=== PATIENT | male | born 1970 | race African-American/Black ===

== ENCOUNTER 2017-03-29 12:01 | Inpatient (IN) | payer OTHER ==
[~2017-03-29] VITALS: Ht 185.4 cm; Wt 68.9 kg
[2017-03-29] VITALS (12 sets, daily range): BP systolic 122–134; BP diastolic 66–77; PULSE 78–104; RESP 16; TEMP 99.3–101.7; O2SAT 100
[~2017-03-29 12:01] MED LIST: Z.0.NO CURRENT MEDS
[2017-03-29 12:25] LABS: I-STAT POTASSIUM 3.8 MMOL/L (3.5-4.9)
[2017-03-29 12:27] LABS: AUTOMATED NEUTROPHIL # 2.7 TH/MM3 (1.8-7.7); BASOPHIL # 0.1 TH/MM3 (0-0.2); BASOPHIL % 1.2 % (0.0-2.0); EOSINOPHIL # 0.1 TH/MM3 (0-0.4); EOSINOPHIL % 2.6 % (0.0-4.0); HEMATOCRIT 40.1 % (39.0-51.0); HEMO FLAGS DIFF FINAL; LYMPH % 41.7 % (9.0-44.0); LYMPHOCYTE # 2.3 TH/MM3 (1.0-4.8); MEAN CELL VOLUME 93.5 FL (80.0-100.0); MEAN CORPUSCULAR HEMOGLOBIN 30.9 PG (27.0-34.0); NEUT % 47.5 % (16.0-70.0); PLATELET COUNT 306 TH/MM3 (150-450); RED BLOOD COUNT 4.29 MIL/MM3 (4.50-5.90); RED CELL DISTRIBUTION WIDTH 14.1 % (11.6-17.2); WHITE BLOOD COUNT 5.6 TH/MM3 (4.0-11.0)
[2017-03-29 12:41] LABS: APTT (PATIENT) 18.9 SEC (24.3-30.1); INTERNATIONAL NORMALIZED RATIO 0.9 RATIO; PROTHROMBIN TIME - PATIENT 10.3 SEC (9.8-11.6)
[2017-03-29] MEDS ORDERED: IOHEXOL 350 MG/ML 10 ML VIAL (for RAD DIAG) IVCONTRAST ONE (12:43)
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
--- NOTE | 2017-03-29 12:56 | RADRPT ---
EXAM DATE/TIME: 03/29/2017 12:03 [place] Corrected on: March 30, 2017; [facility] COMPARISON: No previous studies available for comparison. INDICATIONS : Post intubation MEDICAL HISTORY : None. SURGICAL HISTORY : None. ENCOUNTER: Initial ACUITY: 1 day PAIN SCORE: Non-responsive. LOCATION: Chest FINDINGS: An endotracheal tube has been placed and has its tip in good position 3 cm above the valery. There a re acute fractures involving the posterior lateral aspects of the left eighth and ninth ribs. No pne umothorax is noted. The lungs are clear. CONCLUSION: 1. Acute fractures involving posterior lateral aspects of the left eighth and ninth ribs. 2. Endotracheal tube in good position 3 cm above the valery. Fracisco Goodson MD on March 29, 2017 at 12:42 Board Certified Radiologist. This report was verified electronically. Fracisco Goodson MD on March 30, 2017 at 10:21 Board Certified Radiologist. This report was verified electronically.
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
[2017-03-29] MEDS ORDERED: NALOXONE HCL 0.4 MG/ML AMP IV PUSH PRN (13:30)
[2017-03-29] MEDS ORDERED: PROPOFOL 1000 MG/100 ML INJ 100 ML IV PRN (13:30)
[2017-03-29] MEDS ORDERED: Post-op Orders (for Pharmacy) MISC XX ONE (13:30)
[2017-03-29] MEDS ORDERED: SODIUM CHLORIDE 0.9% FLUSH 10 ML FLUSH IV FLUSH PRN (13:30)
[2017-03-29] MEDS ORDERED: ONDANSETRON HCL 4 MG/2 ML VIAL IV PUSH PRN (13:30)
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
[2017-03-29] MEDS ORDERED: fentaNYL DRIP 250 ML IV PRN (13:45)
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
[2017-03-29] MEDS: SODIUM CHLOR 0.9% 1000 ML INJ 1,000 ML IV SCH (14:59)
[2017-03-29 16:06] LABS: BLOOD GAS BASE EXCESS 2.3 mmol/L (-2-2); BLOOD GAS CARBOXYHEMOGLOBIN 0.9 % (0-4); BLOOD GAS HCO3 27 mmol/L (22-26); BLOOD GAS METHEMOGLOBIN 1.1 % (0-2); BLOOD GAS O2 HGB SATURATION 98 % (90-100); BLOOD GAS OXYGEN CONTENT 17.8 Vol % (12.0-20.0); BLOOD GAS PCO2 43 mmHg (38-42); BLOOD GAS PO2 526 mmHg (61-120); BLOOD GAS TOTAL HGB 11.9 G/DL (12.0-16.0); CRITICAL VALUE NO; OXYGEN DEVICE VENTILATOR; TEMP CORR TO 98.6
[2017-03-29 16:07] LABS: DRAW SITE RT RADIAL; FIO2 100 %; NUMBER OF ARTERIAL PUNCTURES 1; STAT NO; ULNAR PULSE PRESENT; VENT SETTINGS PRVC/AC
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
[2017-03-29] MEDS: ACETAMINOPHEN 1000 MG/100 ML VIAL IV PRN (17:36)
[2017-03-29] MEDS: PROPOFOL 1000 MG/100 ML INJ 100 ML IV PRN ×2 (17:45→20:53)
[2017-03-29] MEDS: fentaNYL DRIP 250 ML IV PRN (17:46)
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
[2017-03-29] MEDS: FAMOTIDINE 20 MG/2 ML VIAL IV PUSH SCH (20:53)
[2017-03-29] MEDS: CHLORHEXIDINE 0.12% (ORAL KIT) 15 ML CUP MT SCH (20:55)
[2017-03-29] MEDS: SODIUM CHLORIDE 0.9% FLUSH 10 ML FLUSH IV FLUSH SCH (20:55)
[2017-03-30] VITALS (21 sets, daily range): BP systolic 99–153; BP diastolic 56–86; PULSE 62–92; RESP 16; TEMP 95.7–98.8; O2SAT 99–100
[2017-03-30] MEDS: PROPOFOL 1000 MG/100 ML INJ 100 ML IV PRN ×5 (02:45→18:44)
[2017-03-30] MEDS: SODIUM CHLOR 0.9% 1000 ML INJ 1,000 ML IV SCH ×3 (02:46→22:08)
[2017-03-30] MEDS: fentaNYL DRIP 250 ML IV PRN ×3 (05:00→18:00)
[2017-03-30 05:19] LABS: BASOPHIL % 0.6 % (0.0-2.0); EOSINOPHIL # 0.1 TH/MM3 (0-0.4); EOSINOPHIL % 1.8 % (0.0-4.0); HEMATOCRIT 32.5 % (39.0-51.0); HEMO FLAGS DIFF FINAL; LYMPH % 24.3 % (9.0-44.0); LYMPHOCYTE # 1.7 TH/MM3 (1.0-4.8); MEAN CELL VOLUME 93.8 FL (80.0-100.0); MEAN CORPUSCULAR HEMOGLOBIN 31.2 PG (27.0-34.0); MEAN CORPUSCULAR HGB CONC 33.3 % (32.0-36.0); MONO % 16.4 % (0.0-8.0); NEUT % 56.9 % (16.0-70.0); PLATELET COUNT 260 TH/MM3 (150-450); RED BLOOD COUNT 3.46 MIL/MM3 (4.50-5.90); RED CELL DISTRIBUTION WIDTH 14.3 % (11.6-17.2); WHITE BLOOD COUNT 7.1 TH/MM3 (4.0-11.0)
[2017-03-30 05:40] LABS: BICARBONATE 29.6 MEQ/L (21.0-32.0); POTASSIUM 4.1 MEQ/L (3.5-5.1)
[2017-03-30] MEDS ORDERED: POTASSIUM CHLORIDE 25 MEQ EFFERVESCENT TAB PO PRN (07:00)
[2017-03-30] MEDS ORDERED: POTASSIUM PHOSPHATE MONOBASIC 500 MG TAB PO/TUBE PRN (07:00)
[2017-03-30] MEDS ORDERED: MAGNESIUM SULFATE INJ 2 GM in SODIUM CHLORIDE 0.9% INJ 96 ML IV PRN (07:00)
[2017-03-30] MEDS: METHOCARBAMOL 500 MG TAB PO SCH ×3 (07:00→21:12)
[2017-03-30] MEDS ORDERED: MAGNESIUM SULFATE INJ 4 GM in SODIUM CHLORIDE 0.9% INJ 92 ML IV PRN (07:00)
[2017-03-30] MEDS ORDERED: POTASSIUM PHOSPHATE INJ 30 MMOL in SODIUM CHLOR 0.9% 250 ML INJ 250 ML IV PRN (07:00)
[2017-03-30] MEDS ORDERED: POTASSIUM CHLOR 40 MEQ PREMIX 100 ML IV PRN ×2 (07:00)
[2017-03-30] MEDS ORDERED: POTASSIUM PHOSPHATE MONOBASIC 500 MG TAB PO PRN (07:00)
[2017-03-30] MEDS ORDERED: SODIUM PHOSPHATE INJ 30 MMOL in SODIUM CHLOR 0.9% 250 ML INJ 240 ML IV PRN (07:00)
[2017-03-30] MEDS ORDERED: BISACODYL 10 MG SUPP RECTAL PRN (07:00)
[2017-03-30] MEDS ORDERED: MAGNESIUM OXIDE 400 MG TAB PO PRN (07:00)
[2017-03-30] MEDS ORDERED: POTASSIUM CHLOR 20 MEQ PREMIX 100 ML IV PRN ×2 (07:00)
[2017-03-30] MEDS ORDERED: GENTAMICIN SULFATE 80 MG/2 ML VIAL ONE (07:05)
[2017-03-30] MEDS ORDERED: VANCOMYCIN HCL 1000 MG VIAL ONE (07:05)
[2017-03-30] MEDS ORDERED: ceFAZolin 2 GM PREMIX 50 ML ONE ×2 (07:05→12:37)
[2017-03-30] MEDS ORDERED: SODIUM CHLOR 0.9% 250 ML INJ 250 ML ONE (07:06)
[2017-03-30] MEDS ORDERED: ACETAMINOPHEN 1000 MG/100 ML 100 ML IV ONE (07:09)
[2017-03-30] MEDS: CHLORHEXIDINE 0.12% (ORAL KIT) 15 ML CUP MT SCH ×2 (08:00→20:24)
[2017-03-30] MEDS ORDERED: BACITRACIN TOP OINT 15 GM TUBE ONE (08:03)
[2017-03-30] MEDS: LACTATED RINGER'S 1000 ML INJ 1,000 ML IV SCH ×2 (08:06→20:36)
--- NOTE | 2017-03-30 08:12 | PD.OP ---
cc: Cesar García MD Operative Report Date of Surgery: Mar 30, 2017 Preoperative Diagnosis: Comminuted right proximal tibial plateau fracture and tibial shaft fracture Postoperative Diagnosis: Procedure: Closed reduction right tibia fractures, external fixation right leg, compartment pressure checks right calf Anesthesia: Gen. Surgeon: Cesar García Plate Embosser(s): Duy Sahu PA-C The surgical procedure was assisted by my physician talent assistant. My P.A. presence was necessary throughout this case for the manipulation and positioning of the surgical extremity. My P.A. was assisting me throughout the duration of this procedure. The skill set of a physician talent assistant was medically necessary to complete this procedure. During the surgical case the medical surgical tech was working at the back table and the physician talent assistant was directly assisting me. Operation and Findings: This patient sustained an injury resulting in comminuted fractures of [right tibia plateau and tibial shaft]. Patient was seen and evaluated preoperatively and found to have too much swelling to proceed with open reduction internal fixation. Patient is intubated and sedated intensive care unit. No family was available for consent. I discussed this case with Dr. Noland. This case is deemed medically necessary as well as medically urgent secondary to the moderate to severe swelling of the calf and risk of developing compartment syndrome. Surgical site was marked. Patient was brought to operating room and placed on the OR table. Patient was given IV sedation and GETA. Patient received IV antibiotics and timeout procedure was performed. Operative leg was prepped with alcohol followed by Hibiclens and draped in the usual sterile fashion. Two small incisions were made along the anterior femur and the tibia. Soft tissue was dissected bluntly. Cannulas were placed down to the cortex of bone. Pin sites were predrilled. Synthes TAVERA-coated pins were placed into the femur and tibia. Fluoroscopy was used to confirm appropriate pin placement. An external fixator construct was now created with clamps and bars. Next attention was turned to reduction. Traction was applied. Fracture was manipulated. Good alignment of the fracture was obtained. Fluoroscopy was used to confirm appropriate alignment of fracture. The external fixator was now tightened to hold reduction. Sterile dressings were applied. Patient was awakened and transferred to intensive care in critical condition The soft tissue was reevaluated. Patient did have swelling around the knee and calf. Because patient is intubated and sedated decision was made to proceed with compartment pressure checks. Using the CanaryHop compartment pressure monitoring device, the compartment pressures were measured. The anterior compartment measured 25 mmHg, the lateral compartment measured 21 mmHg, and the posterior compartment measured 18 mmHg. Cesar García MD Mar 30, 2017 08:11
[2017-03-30] MEDS ORDERED: SODIUM CHLORIDE 0.9% FLUSH 5 ML FLUSH IVF PRN (08:15)
[2017-03-30] MEDS ORDERED: Post-op Orders (for Pharmacy) MISC XX ONE (08:15)
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
[2017-03-30] MEDS: SODIUM CHLORIDE 0.9% FLUSH 5 ML FLUSH IVF SCH ×2 (09:00→21:00)
[2017-03-30] MEDS: DOCUSATE SODIUM 50 MG/SENNA 8.6 MG TAB PO SCH ×2 (09:00→20:24)
[2017-03-30] MEDS: LACTULOSE SYRUP 20 GM/30 ML CUP PO SCH (09:00)
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
[2017-03-30] MEDS: FAMOTIDINE 20 MG/2 ML VIAL IV PUSH SCH ×2 (09:26→20:24)
[2017-03-30] MEDS: LIDOCAINE HCL 5% PATCH T-DERMAL SCH (09:27)
[2017-03-30] MEDS: SODIUM CHLORIDE 0.9% FLUSH 10 ML FLUSH IV FLUSH SCH ×2 (09:28→21:00)
--- NOTE | 2017-03-30 10:30 | RADRPT ---
EXAM DATE/TIME: 03/30/2017 09:24 [facility] COMPARISON: CHEST SINGLE AP, March 29, 2017, 12:03. INDICATIONS : Pulmonary contusions. MEDICAL HISTORY : Nonresponsive SURGICAL HISTORY : Nonresponsive ENCOUNTER: Initial ACUITY: 2 days PAIN SCORE: Non-responsive. LOCATION: Bilateral chest FINDINGS: An endotracheal tube has its tip approximately 3 cm above the valery. A nasogastric tube has its tip below diaphragm. The heart and mediastinal structures are normal. The pulmonary vascular pattern i s also normal. The lungs are clear. There are acute non-displaced fractures involving the posterior lateral aspects of the left eighth and ninth ribs. CONCLUSION: 1. Endotracheal tube in good position 3 cm above the valery. 2. Nasogastric tube in good position below the diaphragm. 3. No acute focal pulmonary infiltrate or pulmonary vascular congestion. 4. Stable acute fractures involving posterior lateral aspect of the left eighth and ninth ribs. Fracisco Goodson MD on March 30, 2017 at 10:17 Board Certified Radiologist. This report was verified electronically.
[2017-03-30] MEDS ORDERED: ONDANSETRON HCL 4 MG/2 ML VIAL IV PUSH ONE (12:00)
[2017-03-30] MEDS ORDERED: ROCURONIUM INJ 50 MG/5 ML SYRINGE IV PUSH ONE (12:00)
[2017-03-30] MEDS ORDERED: DEXAMETHASONE SOD PHOS 4 MG/ML VIAL IV ONE (12:00)
[2017-03-30] MEDS ORDERED: GENTAMICIN SULFATE 80 MG/2 ML VIAL IRRIGATION ONE (13:09)
--- NOTE | 2017-03-30 13:31 | RADRPT ---
EXAM DATE/TIME: 03/30/2017 07:56 [facility] COMPARISON: CT TIBIA/FIBULA, W/O CONTRAST, RIGHT, March 29, 2017, 12:37. INDICATIONS : Surgical repair, x-fix. MEDICAL HISTORY : None. SURGICAL HISTORY : None. ENCOUNTER: Initial ACUITY: 1 day PAIN SCORE: Non-responsive. LOCATION: Right knee. FINDINGS: Severely comminuted fracture of the right knee on the plateau extending into the midshaft of the tibi a. CONCLUSION: Tibial fracture fracture as described above, described in detail on CT scan of fibula and tibia 03/29/2017 Kirt Maldonado MD FACR on March 30, 2017 at 13:28 Board Certified Radiologist. This report was verified electronically.
[2017-03-30] MEDS: KETOROLAC TROMETHAMINE 30 MG/ML (IVP) VIAL IVP SCH ×2 (14:34→21:12)
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
[2017-03-31] VITALS (16 sets, daily range): BP systolic 106–147; BP diastolic 57–81; PULSE 70–116; RESP 12–20; TEMP 98.2–99.5; O2SAT 97–100
[2017-03-31] MEDS: PROPOFOL 1000 MG/100 ML INJ 100 ML IV PRN ×2 (03:37→06:34)
--- NOTE | 2017-03-31 04:38 | RADRPT ---
EXAM DATE/TIME: 03/31/2017 03:50 [facility] COMPARISON: CHEST SINGLE AP, March 30, 2017, 9:24. INDICATIONS : Post intubation MEDICAL HISTORY : Unobtainable SURGICAL HISTORY : Unobtainable ENCOUNTER: Subsequent ACUITY: 3 days PAIN SCORE: Non-responsive. LOCATION: Bilateral chest FINDINGS: Single AP view of the chest. Endotracheal tube and nasogastric tube remain in place. The tip of the e ndotracheal tube is 2.5 cm above the valery. Nasogastric tube is coiled in the stomach. Lungs are barrie ar. Cardiomediastinal silhouette within normal limits. Left eighth and ninth rib fractures again seen . No evidence of pleural effusion or pneumothorax. CONCLUSION: Endotracheal tube and nasogastric tube in place. Lungs are clear. Yoan Kelley MD on March 31, 2017 at 4:35 Board Certified Radiologist. This report was verified electronically.
[2017-03-31 06:10] LABS: BICARBONATE 24.5 MEQ/L (21.0-32.0); POTASSIUM 4.3 MEQ/L (3.5-5.1)
[2017-03-31] MEDS: ENOXAPARIN SODIUM 30 MG/0.3 ML SYRINGE SQ SCH ×2 (06:15→18:01)
[2017-03-31] MEDS: KETOROLAC TROMETHAMINE 30 MG/ML (IVP) VIAL IVP SCH ×3 (06:15→20:36)
[2017-03-31] MEDS: METHOCARBAMOL 500 MG TAB PO SCH ×3 (06:15→20:35)
[2017-03-31 06:35] LABS: AUTOMATED NEUTROPHIL # 5.9 TH/MM3 (1.8-7.7); BASOPHIL # 0.1 TH/MM3 (0-0.2); BASOPHIL % 0.9 % (0.0-2.0); EOSINOPHIL # 0.1 TH/MM3 (0-0.4); EOSINOPHIL % 1.5 % (0.0-4.0); HEMATOCRIT 26.5 % (39.0-51.0); HEMO FLAGS DIFF FINAL; LYMPH % 19.7 % (9.0-44.0); LYMPHOCYTE # 1.9 TH/MM3 (1.0-4.8); MEAN CELL VOLUME 92.6 FL (80.0-100.0); MEAN CORPUSCULAR HEMOGLOBIN 31.4 PG (27.0-34.0); MEAN CORPUSCULAR HGB CONC 33.9 % (32.0-36.0); MONO % 15.3 % (0.0-8.0); NEUT % 62.6 % (16.0-70.0); PLATELET COUNT 178 TH/MM3 (150-450); RED BLOOD COUNT 2.86 MIL/MM3 (4.50-5.90); RED CELL DISTRIBUTION WIDTH 14.2 % (11.6-17.2)
[2017-03-31] MEDS: fentaNYL DRIP 250 ML IV PRN (06:35)
[2017-03-31 06:36] LABS: WHITE BLOOD COUNT 9.4 TH/MM3 (4.0-11.0)
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
[2017-03-31] MEDS: CHLORHEXIDINE 0.12% (ORAL KIT) 15 ML CUP MT SCH ×2 (08:00→20:00)
[2017-03-31] MEDS: DOCUSATE SODIUM 50 MG/SENNA 8.6 MG TAB PO SCH ×2 (08:30→21:00)
[2017-03-31] MEDS: LIDOCAINE HCL 5% PATCH T-DERMAL SCH (08:30)
[2017-03-31] MEDS: FAMOTIDINE 20 MG/2 ML VIAL IV PUSH SCH ×2 (08:30→20:36)
[2017-03-31] MEDS: LACTULOSE SYRUP 20 GM/30 ML CUP PO SCH (08:30)
[2017-03-31] MEDS: SODIUM CHLORIDE 0.9% FLUSH 10 ML FLUSH IV FLUSH SCH (08:31)
[2017-03-31] MEDS: SODIUM CHLORIDE 0.9% FLUSH 5 ML FLUSH IVF SCH (08:31)
[2017-03-31] MEDS: LACTATED RINGER'S 1000 ML INJ 1,000 ML IV SCH ×2 (09:06→21:36)
[2017-03-31] MEDS: SODIUM CHLOR 0.9% 1000 ML INJ 1,000 ML IV SCH ×2 (09:45→18:00)
--- NOTE | 2017-03-31 11:03 | PD.ORT.PN ---
Subjective Subjective Remarks Intubated. follows commands Objective Vitals Vital Signs Date Time Temp Pulse Resp B/P (MAP) Pulse Ox O2 Delivery O2 Flow Rate FiO2 03/31/17 10:08 30 03/31/17 10:00 95 03/31/17 08:49 100 30 03/31/17 08:00 99.3 97 12 115/62 (79) 100 03/31/17 08:00 86 03/31/17 08:00 30 03/31/17 06:00 87 03/31/17 05:05 100 30 03/31/17 04:00 70 03/31/17 04:00 99.1 90 16 136/65 (88) 100 03/31/17 04:00 30 03/31/17 02:00 100 30 03/31/17 00:00 30 03/31/17 00:00 70 03/31/17 00:00 98.2 73 16 106/57 (73) 99 03/30/17 22:00 72 03/30/17 20:20 100 30 03/30/17 20:00 91 03/30/17 20:00 30 03/30/17 20:00 98.8 91 16 99/56 (70) 99 03/30/17 18:00 70 03/30/17 16:18 100 30 03/30/17 16:00 95.7 62 16 113/64 (80) 100 03/30/17 16:00 62 03/30/17 16:00 30 03/30/17 15:47 16 03/30/17 14:00 66 03/30/17 13:50 100 30 03/30/17 13:08 100 100 03/30/17 12:00 97.9 66 16 153/86 (108) 100 03/30/17 12:00 66 03/30/17 12:00 30 I/O 03/30/17 03/30/17 03/30/17 03/31/17 03/31/17 03/31/17 07:00 15:00 23:00 07:00 15:00 23:00 Intake Total 1350 ml 850 ml 1350 ml 450 ml 1000 ml Output Total 820 ml 410 ml 875 ml 1000 ml Balance 530 ml 440 ml 475 ml -550 ml 1000 ml Intake IV Total 1350 ml 700 ml 1350 ml 450 ml 1000 ml Other 150 ml Output Urine Total 800 ml 300 ml 450 ml 400 ml Gastric Drainage Total 20 ml 125 ml 50 ml Drainage Total 300 ml 550 ml Estimated Blood Loss 110 ml # Bowel Movements 0 0 Result Diagram: 03/31/1717 03/31/17516 Imaging Last 24 hours Impressions Knee X-Ray 03/30/17 0000 Signed Impressions: Service Date/Time: Thursday, March 30, 2017 07:56 - CONCLUSION: Tibial fracture fracture as described above, described in detail on CT scan of fibula and tibia 03/29/2017 Kirt Maldonado MD FACR Chest X-Ray 03/30/17 0000 Signed Impressions: Service Date/Time: Thursday, March 30, 2017 09:24 - CONCLUSION: 1. Endotracheal tube in good position 3 cm above the valery. 2. Nasogastric tube in good position below the diaphragm. 3. No acute focal pulmonary infiltrate or pulmonary vascular congestion. 4. Stable acute fractures involving posterior lateral aspect of the left eighth and ninth ribs. Fracisco Goodson MD Objective Remarks Right lower extremity: Clean dry dressings intact with wound VAC in place. External fixator in place. Compartments soft. Distally intact distal pulses. moves toes on R foot fairly well. Assessment & Plan Assessment and Plan Right severely comminuted tibia plateau and proximal tibia shaft fractures with external fixation and return back to OR same day for fasciotomies POD 1 Wound VAC will continue to be maintained at 125 mmHg DPC 3-1 Pin care twice a day Elevation and ice We'll plan on surgery next week if swelling has improved (by Dr. Marie) Toradol Lovenox Daniel Quarles MD Mar 31, 2017 11:03
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
[2017-03-31] MEDS ORDERED: MISCELLANEOUS NURSING INFORMATION XX SCH (11:45)
[2017-03-31] MEDS: ACETAMINOPHEN 1000 MG/100 ML VIAL IV PRN (13:56)
[2017-03-31] MEDS ORDERED: ACETAMINOPHEN 325 MG TAB PO PRN (14:00)
[2017-03-31] MEDS: MORPHINE SULFATE 4 MG/ML INJ IV PUSH PRN ×2 (16:29→16:45)
[2017-03-31] MEDS: ACETAMINOPHEN/HYDROcodone 325 MG/5 MG TAB PO PRN (20:36)
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
[2017-03-31] MEDS: HALOPERIDOL LACTATE 5 MG/ML AMP IV SCH ×2 (22:01→23:05)
[2017-03-31] MEDS: DEXMEDETOMIDINE 200 MCG in NS 48 ML IV PRN (23:21)
[2017-04-01] VITALS (18 sets, daily range): BP systolic 113–157; BP diastolic 58–78; PULSE 71–107; RESP 14–24; TEMP 98.7–99.5; O2SAT 95–100
[2017-04-01] MEDS: DEXMEDETOMIDINE 200 MCG in NS 48 ML IV PRN ×2 (01:46→06:13)
[2017-04-01] MEDS: ENOXAPARIN SODIUM 30 MG/0.3 ML SYRINGE SQ SCH (05:18)
[2017-04-01] MEDS: KETOROLAC TROMETHAMINE 30 MG/ML (IVP) VIAL IVP SCH (05:18)
[2017-04-01] MEDS: METHOCARBAMOL 500 MG TAB PO SCH ×3 (05:18→21:36)
[2017-04-01 06:28] LABS: AUTOMATED NEUTROPHIL # 5.1 TH/MM3 (1.8-7.7); BASOPHIL # 0.1 TH/MM3 (0-0.2); BASOPHIL % 0.9 % (0.0-2.0); EOSINOPHIL # 0.1 TH/MM3 (0-0.4); EOSINOPHIL % 1.2 % (0.0-4.0); LYMPH % 13.2 % (9.0-44.0); LYMPHOCYTE # 0.9 TH/MM3 (1.0-4.8); MEAN CELL VOLUME 92.7 FL (80.0-100.0); MEAN CORPUSCULAR HEMOGLOBIN 32.1 PG (27.0-34.0); MEAN CORPUSCULAR HGB CONC 34.6 % (32.0-36.0); MONO % 11.3 % (0.0-8.0); NEUT % 73.4 % (16.0-70.0); PLATELET COUNT 146 TH/MM3 (150-450); RED CELL DISTRIBUTION WIDTH 13.8 % (11.6-17.2)
[2017-04-01 06:31] LABS: HEMO FLAGS DIFF FINAL
[2017-04-01 06:33] LABS: HEMATOCRIT 15.7 % (39.0-51.0)
[2017-04-01 06:42] LABS: BICARBONATE 27.1 MEQ/L (21.0-32.0); POTASSIUM 3.6 MEQ/L (3.5-5.1)
[2017-04-01] MEDS: LACTATED RINGER'S 1000 ML INJ 1,000 ML IV SCH ×2 (07:33→22:08)
[2017-04-01] MEDS: CHLORHEXIDINE 0.12% (ORAL KIT) 15 ML CUP MT SCH ×2 (07:33→19:39)
[2017-04-01] MEDS: LACTULOSE SYRUP 20 GM/30 ML CUP PO SCH (07:46)
[2017-04-01] MEDS: LIDOCAINE HCL 5% PATCH T-DERMAL SCH (08:11)
[2017-04-01] MEDS: FAMOTIDINE 20 MG/2 ML VIAL IV PUSH SCH ×2 (08:11→19:39)
[2017-04-01] MEDS: SODIUM CHLORIDE 0.9% FLUSH 5 ML FLUSH IVF SCH ×2 (08:12→19:39)
[2017-04-01] MEDS: DOCUSATE SODIUM 50 MG/SENNA 8.6 MG TAB PO SCH ×2 (08:13→19:38)
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
[2017-04-01] MEDS: MORPHINE SULFATE 4 MG/ML INJ IV PUSH PRN ×3 (12:13→19:38)
[2017-04-01] MEDS: SODIUM CHLOR 0.9% 1000 ML INJ 1,000 ML IV SCH ×2 (12:25→23:09)
[2017-04-01] MEDS: ACETAMINOPHEN/HYDROcodone 325 MG/5 MG TAB PO PRN ×3 (12:33→22:11)
--- NOTE | 2017-04-01 17:14 | PD.ORT.PN ---
Subjective Subjective Remarks awake (extubated), no complaints about R leg Objective Vitals Vital Signs Date Time Temp Pulse Resp B/P (MAP) Pulse Ox O2 Delivery O2 Flow Rate FiO2 04/01/17 16:00 88 04/01/17 16:00 98.8 84 16 140/76 (97) 100 04/01/17 15:11 98.8 86 15 147/78 100 04/01/17 14:00 86 04/01/17 13:50 98.7 107 20 122/62 96 04/01/17 13:35 98.8 79 14 126/68 100 04/01/17 13:14 98.7 86 22 126/69 100 04/01/17 12:52 98.8 80 14 113/61 100 04/01/17 12:00 98.8 74 14 124/58 (80) 100 04/01/17 12:00 77 04/01/17 10:00 73 04/01/17 08:09 100 21 04/01/17 08:00 99.0 71 16 125/65 (85) 100 04/01/17 08:00 78 04/01/17 06:00 91 04/01/17 04:00 81 04/01/17 04:00 99.0 87 16 128/66 (86) 100 04/01/17 02:00 84 04/01/17 00:00 98.7 100 15 141/77 (98) 100 04/01/17 00:00 85 03/31/17 22:00 80 03/31/17 20:00 100 03/31/17 20:00 99.0 116 20 132/73 (92) 100 03/31/17 18:00 95 I/O 03/31/17 03/31/17 03/31/17 04/01/17 04/01/17 04/01/17 07:00 15:00 23:00 07:00 15:00 23:00 Intake Total 450 ml 1111 ml 1240 ml 296 ml 980 ml 500 ml Output Total 1000 ml 1827 ml 1150 ml Balance -550 ml 1111 ml -587 ml -854 ml 980 ml 500 ml Intake Oral 240 ml 200 ml IV Total 450 ml 1111 ml 1000 ml 96 ml Packed Cells 800 ml 400 ml Blood Product IV Normal Saline Flush 180 ml 100 ml Output Urine Total 400 ml 1177 ml 550 ml Gastric Drainage Total 50 ml Drainage Total 550 ml 650 ml 600 ml # Bowel Movements 0 0 0 Result Diagram: 04/01/17 0550 04/01/17 0550 Imaging Last 24 hours Impressions Knee X-Ray 03/30/17 0000 Signed Impressions: Service Date/Time: Thursday, March 30, 2017 07:56 - CONCLUSION: Tibial fracture fracture as described above, described in detail on CT scan of fibula and tibia 03/29/2017 Kirt Maldonado MD FACR Chest X-Ray 03/30/17 0000 Signed Impressions: Service Date/Time: Thursday, March 30, 2017 09:24 - CONCLUSION: 1. Endotracheal tube in good position 3 cm above the valery. 2. Nasogastric tube in good position below the diaphragm. 3. No acute focal pulmonary infiltrate or pulmonary vascular congestion. 4. Stable acute fractures involving posterior lateral aspect of the left eighth and ninth ribs. Fracisco Goodson MD Objective Remarks Right lower extremity: Clean dry dressings intact with wound VAC in place. External fixator in place. Compartments soft. Distally intact distal pulses. moves toes on R foot well. no pain with passive stretch. The fluid coming from VAC is typical serosang (no jaquan dark red blood to indicate direct vessel bleeding) Assessment & Plan Assessment and Plan Right severely comminuted tibia plateau and proximal tibia shaft fractures with external fixation and return back to OR same day for fasciotomies POD 2 Wound VAC will continue to be maintained at 125 mmHg DPC 3-1 Pin care twice a day Elevation and ice We'll plan on surgery next week if swelling has improved (by Dr. Marie) Toradol Lovenox Patient was transfused for low HCT. I do not see definitive need for emergent return to OR today based on eval today Daniel Quarles MD Apr 01, 2017 17:14
[2017-04-01] MEDS: diphenhydrAMINE HCL 25 MG CAP PO PRN (19:38)
[2017-04-01] MEDS: QUEtiapine FUMARATE 100 MG TAB PO SCH (19:38)
[2017-04-01 20:12] LABS: HEMATOCRIT 23.8 % (39.0-51.0); MEAN CELL VOLUME 85.8 FL (80.0-100.0); MEAN CORPUSCULAR HEMOGLOBIN 31.2 PG (27.0-34.0); PLATELET COUNT 144 TH/MM3 (150-450); RED BLOOD COUNT 2.78 MIL/MM3 (4.50-5.90); RED CELL DISTRIBUTION WIDTH 16.4 % (11.6-17.2); WHITE BLOOD COUNT 8.8 TH/MM3 (4.0-11.0)
[2017-04-01 20:15] LABS: MEAN CORPUSCULAR HGB CONC 36.4 % (32.0-36.0); REVIEW FLAG FINAL
[2017-04-02] VITALS (10 sets, daily range): BP systolic 135–168; BP diastolic 64–89; PULSE 83–93; RESP 14–18; TEMP 98.3–98.9; O2SAT 98–100
[2017-04-02] MEDS: MORPHINE SULFATE 4 MG/ML INJ IV PUSH PRN ×2 (00:12→06:11)
[2017-04-02] MEDS: diphenhydrAMINE HCL 25 MG CAP PO PRN (04:10)
[2017-04-02] MEDS: ACETAMINOPHEN/HYDROcodone 325 MG/5 MG TAB PO PRN ×2 (04:10→08:43)
[2017-04-02] MEDS: METHOCARBAMOL 500 MG TAB PO SCH ×3 (04:10→21:38)
[2017-04-02 05:56] LABS: BASOPHIL # 0.1 TH/MM3 (0-0.2); BASOPHIL % 1.1 % (0.0-2.0); EOSINOPHIL # 0.2 TH/MM3 (0-0.4); EOSINOPHIL % 2.1 % (0.0-4.0); HEMATOCRIT 26.7 % (39.0-51.0); HEMO FLAGS DIFF FINAL; LYMPH % 13.2 % (9.0-44.0); LYMPHOCYTE # 1.1 TH/MM3 (1.0-4.8); MEAN CELL VOLUME 86.3 FL (80.0-100.0); MEAN CORPUSCULAR HEMOGLOBIN 30.3 PG (27.0-34.0); MEAN CORPUSCULAR HGB CONC 35.1 % (32.0-36.0); MONO % 14.3 % (0.0-8.0); NEUT % 69.3 % (16.0-70.0); PLATELET COUNT 176 TH/MM3 (150-450); RED CELL DISTRIBUTION WIDTH 16.7 % (11.6-17.2); WHITE BLOOD COUNT 8.6 TH/MM3 (4.0-11.0)
[2017-04-02 06:08] LABS: POTASSIUM 3.4 MEQ/L (3.5-5.1)
--- NOTE | 2017-04-02 07:22 | PD.ORT.PN ---
Subjective Subjective Remarks POD 3 s/p exfix with fasciotomy right proximal tibia doing well. pain controlled. extubated. no complaints Objective Vitals Vital Signs Date Time Temp Pulse Resp B/P (MAP) Pulse Ox O2 Delivery O2 Flow Rate FiO2 04/02/17 06:42 17 04/02/17 05:26 14 04/02/17 04:00 98.4 90 18 168/79 (108) 100 04/02/17 00:00 98.8 88 14 135/64 (87) 100 04/01/17 20:20 100 04/01/17 20:00 99.5 91 24 157/72 (100) 95 04/01/17 18:00 89 04/01/17 16:00 88 04/01/17 16:00 98.8 84 16 140/76 (97) 100 04/01/17 15:11 98.8 86 15 147/78 100 04/01/17 14:00 86 04/01/17 13:50 98.7 107 20 122/62 96 04/01/17 13:35 98.8 79 14 126/68 100 04/01/17 13:14 98.7 86 22 126/69 100 04/01/17 12:52 98.8 80 14 113/61 100 04/01/17 12:00 98.8 74 14 124/58 (80) 100 04/01/17 12:00 77 04/01/17 10:00 73 04/01/17 08:09 100 21 04/01/17 08:00 99.0 71 16 125/65 (85) 100 04/01/17 08:00 78 I/O 04/01/17 04/01/17 04/01/17 04/02/17 04/02/17 04/02/17 07:00 15:00 23:00 07:00 15:00 23:00 Intake Total 296 ml 980 ml 1500 ml 1420 ml Output Total 1150 ml 1600 ml 1550 ml Balance -854 ml 980 ml -100 ml -130 ml Intake Oral 200 ml 1000 ml 420 ml IV Total 96 ml 1000 ml Packed Cells 800 ml 400 ml Blood Product IV Normal Saline Flush 180 ml 100 ml Output Urine Total 550 ml 1300 ml 1200 ml Drainage Total 600 ml 300 ml 350 ml # Bowel Movements 0 0 0 Result Diagram: 04/02/1750904/02/17509 Imaging Last 24 hours Impressions Knee X-Ray 03/30/17 0000 Signed Impressions: Service Date/Time: Thursday, March 30, 2017 07:56 - CONCLUSION: Tibial fracture fracture as described above, described in detail on CT scan of fibula and tibia 03/29/2017 Kirt Maldonado MD FACR Chest X-Ray 03/30/17 0000 Signed Impressions: Service Date/Time: Thursday, March 30, 2017 09:24 - CONCLUSION: 1. Endotracheal tube in good position 3 cm above the valery. 2. Nasogastric tube in good position below the diaphragm. 3. No acute focal pulmonary infiltrate or pulmonary vascular congestion. 4. Stable acute fractures involving posterior lateral aspect of the left eighth and ninth ribs. Fracisco Goodson MD Objective Remarks Right lower extremity: Clean dry dressings intact with wound VAC in place. External fixator in place. Compartments soft. Distally intact distal pulses. moves toes on R foot well. no pain with passive stretch. The fluid coming from VAC is typical serosang (no jaquan dark red blood to indicate direct vessel bleeding) Assessment & Plan Assessment and Plan 1) Right severely comminuted tibia plateau and proximal tibia shaft fractures with external fixation and return back to OR same day for fasciotomies POD 3 Wound VAC will continue to be maintained at 125 mmHg DPC 3-1 Pin care twice a day Elevation and ice Toradol Lovenox Patient was transfused for low HCT. NPO after MN plan for surgery tomorrow for possible closure of fasciotomies Oliver Krishna Apr 02, 2017 07:22
[2017-04-02] MEDS: LIDOCAINE HCL 5% PATCH T-DERMAL SCH (08:41)
[2017-04-02] MEDS: LACTULOSE SYRUP 20 GM/30 ML CUP PO SCH (08:41)
[2017-04-02] MEDS: DOCUSATE SODIUM 50 MG/SENNA 8.6 MG TAB PO SCH ×2 (08:42→21:38)
[2017-04-02] MEDS: FAMOTIDINE 20 MG/2 ML VIAL IV PUSH SCH ×2 (08:42→21:41)
[2017-04-02] MEDS: CHLORHEXIDINE 0.12% (ORAL KIT) 15 ML CUP MT SCH (08:44)
[2017-04-02] MEDS: QUEtiapine FUMARATE 100 MG TAB PO SCH ×2 (08:45→21:39)
[2017-04-02] MEDS: SODIUM CHLORIDE 0.9% FLUSH 5 ML FLUSH IVF SCH ×2 (08:45→21:00)
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
[2017-04-02] MEDS ORDERED: POTASSIUM CHLORIDE 20 MEQ PWD PACKET PO STA (14:17)
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
[2017-04-03] VITALS: BP 141/81; PULSE 101; PULSE 93; RESP 16; TEMP 99.3; O2SAT 100
[2017-04-03] MEDS: ACETAMINOPHEN/HYDROcodone 325 MG/5 MG TAB PO PRN ×2 (02:06→20:13)
[2017-04-03 04:00] VITALS: BP 125/65; PULSE 82; PULSE 86; RESP 16; TEMP 98.2; O2SAT 100
[2017-04-03 05:10] LABS: AUTOMATED NEUTROPHIL # 8.9 TH/MM3 (1.8-7.7); BASOPHIL # 0.1 TH/MM3 (0-0.2); BASOPHIL % 0.7 % (0.0-2.0); EOSINOPHIL # 0.2 TH/MM3 (0-0.4); HEMATOCRIT 27.5 % (39.0-51.0); HEMO FLAGS DIFF FINAL; LYMPH % 10.1 % (9.0-44.0); LYMPHOCYTE # 1.2 TH/MM3 (1.0-4.8); MEAN CELL VOLUME 87.1 FL (80.0-100.0); MEAN CORPUSCULAR HEMOGLOBIN 30.5 PG (27.0-34.0); MEAN CORPUSCULAR HGB CONC 35.1 % (32.0-36.0); MONO % 11.6 % (0.0-8.0); NEUT % 75.6 % (16.0-70.0); PLATELET COUNT 240 TH/MM3 (150-450); RED BLOOD COUNT 3.15 MIL/MM3 (4.50-5.90); RED CELL DISTRIBUTION WIDTH 16.3 % (11.6-17.2); WHITE BLOOD COUNT 11.8 TH/MM3 (4.0-11.0)
[2017-04-03] MEDS: METHOCARBAMOL 500 MG TAB PO SCH ×3 (05:39→20:11)
[2017-04-03 05:40] LABS: ANION GAP 9 MEQ/L (5-15); AST (GOT) 51 U/L (15-37); BICARBONATE 27.5 MEQ/L (21.0-32.0); BLOOD UREA NITROGEN 8 MG/DL (7-18); CHLORIDE 105 MEQ/L (98-107); GLOMERULAR FILTRATION RATE 114 ML/MIN (>89); SODIUM (NA) 141 MEQ/L (136-145)
[2017-04-03 05:46] LABS: ALKALINE PHOSPHATASE 60 U/L (45-117); ALT (GPT) 40 U/L (12-78); TOTAL BILIRUBIN ADULT 0.9 MG/DL (0.2-1.0)
--- NOTE | 2017-04-03 06:00 | RADRPT ---
EXAM DATE/TIME: 04/03/2017 05:29 [facility] COMPARISON: CHEST SINGLE AP, March 31, 2017, 3:50. INDICATIONS : Short of breath. MEDICAL HISTORY : Nonresponsive. SURGICAL HISTORY : Nonresponsive. ENCOUNTER: Subsequent ACUITY: 4 - 6 days PAIN SCORE: Non-responsive. LOCATION: Bilateral chest FINDINGS: A single view of the chest demonstrates the lungs to be symmetrically aerated without evidence of mas s, infiltrate or effusion. The cardiomediastinal contours are unremarkable. Osseous structures are intact. Endotracheal tube has been removed. CONCLUSION: 1. No acute cardiopulmonary disease. Pasquale Mata MD on April 03, 2017 at 5:58 Board Certified Radiologist. This report was verified electronically.
--- NOTE | 2017-04-03 06:54 | PD.ORT.PN ---
Subjective Subjective Remarks POD 4 s/p exfix with fasciotomy right proximal tibia doing well. pain controlled. extubated. no complaints Objective Vitals Vital Signs Date Time Temp Pulse Resp B/P (MAP) Pulse Ox O2 Delivery O2 Flow Rate FiO2 04/03/17 04:00 82 04/03/17 04:00 98.2 86 16 125/65 (85) 100 04/03/17 00:00 93 04/03/17 00:00 99.3 101 16 141/81 (101) 100 04/02/17 21:46 100 21 04/02/17 20:00 85 04/02/17 20:00 98.9 88 16 147/89 (108) 98 04/02/17 18:42 98.7 92 16 153/80 (104) 100 04/02/17 18:00 83 04/02/17 12:00 89 04/02/17 12:00 98.7 86 14 146/80 (102) 100 04/02/17 10:00 93 04/02/17 08:26 100 04/02/17 08:00 88 04/02/17 08:00 98.3 86 14 136/72 (93) 100 I/O 04/02/17 04/02/17 04/02/17 04/03/17 04/03/17 04/03/17 07:00 15:00 23:00 07:00 15:00 23:00 Intake Total 2420 ml 1100 ml 300 ml Output Total 1550 ml 700 ml 1000 ml Balance 870 ml 400 ml -700 ml Intake Oral 420 ml 1100 ml 300 ml IV Total 2000 ml Output Urine Total 1200 ml 400 ml 750 ml Drainage Total 350 ml 300 ml 250 ml # Voids 5 # Bowel Movements 0 0 Result Diagram: 04/03/17 0445 04/03/17 0445 Imaging Last 24 hours Impressions Knee X-Ray 03/30/17 0000 Signed Impressions: Service Date/Time: Thursday, March 30, 2017 07:56 - CONCLUSION: Tibial fracture fracture as described above, described in detail on CT scan of fibula and tibia 03/29/2017 Kirt Maldonado MD FACR Chest X-Ray 03/30/17 0000 Signed Impressions: Service Date/Time: Thursday, March 30, 2017 09:24 - CONCLUSION: 1. Endotracheal tube in good position 3 cm above the valery. 2. Nasogastric tube in good position below the diaphragm. 3. No acute focal pulmonary infiltrate or pulmonary vascular congestion. 4. Stable acute fractures involving posterior lateral aspect of the left eighth and ninth ribs. Fracisco Goodson MD Objective Remarks Right lower extremity: Clean dry dressings intact with wound VAC in place. External fixator in place. Compartments soft. Distally intact distal pulses. moves toes on R foot well. no pain with passive stretch. The fluid coming from VAC is typical serosang (no jaquan dark red blood to indicate direct vessel bleeding) Assessment & Plan Assessment and Plan 1) Right severely comminuted tibia plateau and proximal tibia shaft fractures with external fixation and return back to OR same day for fasciotomies POD 4 Wound VAC will continue to be maintained at 125 mmHg DPC 3-1 Pin care twice a day Elevation and ice Toradol Lovenox plan for surgery today for I&D and fasciotomy closure right leg Oliver Krishna Apr 03, 2017 06:54
[2017-04-03 08:00] VITALS: BP 141/78; PULSE 75; RESP 16; TEMP 99; O2SAT 100
[2017-04-03 08:15] VITALS: O2SAT 99
[2017-04-03] MEDS: MAGNESIUM HYDROXIDE SUSP 30 ML CUP PO SCH ×2 (09:00→20:11)
[2017-04-03] MEDS: LIDOCAINE HCL 5% PATCH T-DERMAL SCH (09:00)
[2017-04-03] MEDS: FAMOTIDINE 20 MG/2 ML VIAL IV PUSH SCH ×2 (09:00→20:13)
[2017-04-03] MEDS: DOCUSATE SODIUM 50 MG/SENNA 8.6 MG TAB PO SCH ×2 (09:00→20:12)
[2017-04-03] MEDS: QUEtiapine FUMARATE 100 MG TAB PO SCH ×2 (09:00→20:13)
[2017-04-03] MEDS: LACTULOSE SYRUP 20 GM/30 ML CUP PO SCH (09:00)
[2017-04-03] MEDS ORDERED: CHLORHEXIDINE GLUCONATE 2 % 1 PACK (2 CLOTHS) TOPICAL PRN (10:00)
[2017-04-03] MEDS ORDERED: LACTATED RINGER'S 1000 ML IV PRN (10:00)
[2017-04-03] MEDS ORDERED: SODIUM CHLORID 0.9% 500 ML IV PRN (10:00)
[2017-04-03] MEDS ORDERED: METOPROLOL TARTRATE 25 MG TAB PO PRN (10:00)
[2017-04-03] MEDS ORDERED: INSULIN HUMAN REGULAR 1,000 UNITS/10 ML VIAL SQ PRN (10:00)
[2017-04-03] MEDS ORDERED: POVIDONE IODINE 5% (ANTISEPSIS KIT) 4 APPLICATIONS EACH NARE PRN (10:00)
[2017-04-03] MEDS ORDERED: GENTAMICIN SULFATE 80 MG/2 ML VIAL ONE (10:32)
[2017-04-03] MEDS: SODIUM CHLORIDE 0.9% FLUSH 5 ML FLUSH IVF SCH ×2 (10:43→20:13)
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
--- NOTE | 2017-04-03 11:41 | PD.OP ---
cc: Cesar Pope MD Operative Report Date of Surgery: Apr 03, 2017 Preoperative Diagnosis: Right calf open medial and lateral fasciotomies Postoperative Diagnosis: Procedure: Closure right calf medial fasciotomy, partial closure lateral calf fasciotomy, application of wound VAC dressing Anesthesia: Gen. Surgeon: Cesar Pope Utility Bagger(s): MARTHA Madera PA-C The surgical procedure was assisted by my physician assistant credit manager. My P.A. presence was necessary throughout this case for the manipulation and positioning of the surgical extremity. My P.A. was assisting me throughout the duration of this procedure. The skill set of a physician assistant credit manager was medically necessary to complete this procedure. During the surgical case the neurosurgical physician assistant was working at the back table and the physician assistant credit manager was directly assisting me. Operation and Findings: [place] sustained comminuted right tibia fracture treated with closed reduction and external fixation. He also developed compartment syndrome treated With fasciotomies. He returned to the operating room today for scheduled closure fasciotomies. Timeout procedure was performed. Right leg was prepped with alcohol followed by Hibiclens and draped usual sterile fashion. Timeout procedure was performed. Procedure began with irrigation of the fasciotomies. The muscle appeared to be healthy along the medial and lateral calf. Incisions were thoroughly irrigated. At this point attention was turned towards closure of the medial fasciotomy. Subcutaneous tissues closed with 3-0 PDS. Skin was now closed with 3-0 nylon. A combination of retention suture and vertical mattress sutures were utilized. The medial fasciotomy was completely closed with minimal skin tension. Next attention was turned towards the lateral fasciotomy. Skin edges were reapproximated with 3-0 PDS. The wound was not completely closable. The incision was partially closed. 3-0 nylon sutures were also placed to help partially close skin. Next attention was turned to wound VAC dressing. VAC Dressings were cut to fit the open wound. VAC dressings were sealed appropriately. Patient was awakened and transferred to recovery in stable condition. Cesar Pope MD Apr 03, 2017 11:41
[2017-04-03] MEDS: ceFAZolin 2 GM PREMIX 50 ML IV SCH ×2 (12:00→20:12)
[2017-04-03] MEDS ORDERED: DEXAMETHASONE SOD PHOS 4 MG/ML VIAL IV ONE (12:00)
[2017-04-03] MEDS ORDERED: LIDOCAINE HCL 1% PF 5 ML AMPULE OTHER ONE (12:00)
[2017-04-03] MEDS ORDERED: ONDANSETRON HCL 4 MG/2 ML VIAL IV PUSH ONE (12:00)
[2017-04-03] MEDS ORDERED: PROPOFOL 200 MG/20 ML AMP IV ONE (12:00)
[2017-04-03] MEDS ORDERED: MIDAZOLAM HCL 2 MG/2 ML VIAL IV ONE (12:00)
[2017-04-03] MEDS: LACTATED RINGER'S 1000 ML INJ 1,000 ML IV SCH (14:00)
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
[2017-04-03 16:00] VITALS: BP 137/85; PULSE 101; RESP 20; TEMP 96.5; O2SAT 97
[2017-04-03] MEDS: ENOXAPARIN SODIUM 30 MG/0.3 ML SYRINGE SQ SCH (18:05)
[2017-04-03 20:00] VITALS: BP 147/78; PULSE 102; RESP 20; TEMP 99.5; O2SAT 99
[2017-04-04] VITALS: BP 117/76; PULSE 97; RESP 20; TEMP 98; O2SAT 95
[2017-04-04 04:00] VITALS: BP 145/76; PULSE 98; RESP 20; TEMP 98.1; O2SAT 100
[2017-04-04] MEDS: ceFAZolin 2 GM PREMIX 50 ML IV SCH ×3 (04:31→21:47)
[2017-04-04] MEDS: ACETAMINOPHEN/HYDROcodone 325 MG/5 MG TAB PO PRN ×2 (04:32→18:42)
[2017-04-04 05:24] LABS: AUTOMATED NEUTROPHIL # 8.1 TH/MM3 (1.8-7.7); BASOPHIL # 0.1 TH/MM3 (0-0.2); BASOPHIL % 0.8 % (0.0-2.0); EOSINOPHIL # 0.1 TH/MM3 (0-0.4); EOSINOPHIL % 0.8 % (0.0-4.0); HEMATOCRIT 27.1 % (39.0-51.0); HEMO FLAGS DIFF FINAL; LYMPH % 12.9 % (9.0-44.0); LYMPHOCYTE # 1.4 TH/MM3 (1.0-4.8); MEAN CELL VOLUME 88.8 FL (80.0-100.0); MEAN CORPUSCULAR HEMOGLOBIN 30.8 PG (27.0-34.0); MEAN CORPUSCULAR HGB CONC 34.7 % (32.0-36.0); MONO % 12.1 % (0.0-8.0); NEUT % 73.4 % (16.0-70.0); PLATELET COUNT 293 TH/MM3 (150-450); RED BLOOD COUNT 3.06 MIL/MM3 (4.50-5.90); RED CELL DISTRIBUTION WIDTH 15.8 % (11.6-17.2)
[2017-04-04 05:36] LABS: ANION GAP 7 MEQ/L (5-15); AST (GOT) 33 U/L (15-37); BICARBONATE 28.9 MEQ/L (21.0-32.0); BLOOD UREA NITROGEN 16 MG/DL (7-18); CHLORIDE 106 MEQ/L (98-107); GLOMERULAR FILTRATION RATE 107 ML/MIN (>89); MAGNESIUM 2.4 MG/DL (1.5-2.5); POTASSIUM 3.9 MEQ/L (3.5-5.1); SODIUM (NA) 142 MEQ/L (136-145)
[2017-04-04 05:41] LABS: ALKALINE PHOSPHATASE 62 U/L (45-117); ALT (GPT) 33 U/L (12-78); TOTAL BILIRUBIN ADULT 0.8 MG/DL (0.2-1.0)
[2017-04-04] MEDS: ENOXAPARIN SODIUM 30 MG/0.3 ML SYRINGE SQ SCH ×2 (06:41→18:02)
[2017-04-04] MEDS: METHOCARBAMOL 500 MG TAB PO SCH ×3 (06:41→21:47)
--- NOTE | 2017-04-04 07:31 | PD.ORT.PN ---
Subjective Subjective Remarks Resting comfortably. Alert and oriented. All questions answered Objective Vitals Vital Signs Date Time Temp Pulse Resp B/P (MAP) Pulse Ox O2 Delivery O2 Flow Rate FiO2 04/04/17 04:00 98.1 98 20 145/76 (99) 100 04/04/17 00:00 98.0 97 20 117/76 (90) 95 04/03/17 20:00 99.5 102 20 147/78 (101) 99 04/03/17 18:58 Room Air 04/03/17 16:00 96.5 101 20 137/85 (102) 97 04/03/17 16:00 102 16 148/83 (104) 99 Room Air 04/03/17 15:00 100 16 147/63 (91) 98 Room Air 04/03/17 14:00 87 16 148/87 (107) 100 Room Air 04/03/17 13:15 86 16 137/75 (95) 100 Room Air 04/03/17 13:00 83 16 146/89 (108) 99 Room Air 04/03/17 12:45 87 16 131/60 (83) 98 Room Air 04/03/17 12:30 83 16 148/89 (108) 100 Room Air 04/03/17 12:11 98.0 98 16 141/86 (104) 98 Room Air 04/03/17 08:15 99 21 04/03/17 08:00 75 04/03/17 08:00 99.0 75 16 141/78 (99) 100 I/O 04/03/17 04/03/17 04/03/17 04/04/17 04/04/17 04/04/17 07:00 15:00 23:00 07:00 15:00 23:00 Intake Total 300 ml 700 ml 270 ml 290 ml Output Total 1600 ml 570 ml 1075 ml Balance -1300 ml 130 ml -805 ml 290 ml Intake Oral 300 ml IV Total 270 ml 290 ml Other 700 ml Output Urine Total 1350 ml 550 ml 1075 ml Drainage Total 250 ml Estimated Blood Loss 20 ml Result Diagram: 04/04/17 0445 04/04/17 0445 Imaging Last 24 hours Impressions Knee X-Ray 03/30/17 0000 Signed Impressions: Service Date/Time: Thursday, March 30, 2017 07:56 - CONCLUSION: Tibial fracture fracture as described above, described in detail on CT scan of fibula and tibia 03/29/2017 Kirt Maldonado MD FACR Chest X-Ray 03/30/17 0000 Signed Impressions: Service Date/Time: Thursday, March 30, 2017 09:24 - CONCLUSION: 1. Endotracheal tube in good position 3 cm above the valery. 2. Nasogastric tube in good position below the diaphragm. 3. No acute focal pulmonary infiltrate or pulmonary vascular congestion. 4. Stable acute fractures involving posterior lateral aspect of the left eighth and ninth ribs. Fracisco Goodson MD Objective Remarks Right lower extremity: Clean dry dressings intact with wound VAC in place. External fixator in place. Compartments soft. Distally intact distal pulses. moves toes on R foot well. no pain with passive stretch. Assessment & Plan Assessment and Plan 1) Right severely comminuted tibia plateau and proximal tibia shaft fractures with external fixation and return back to OR same day for fasciotomies POD 5 Irrigation debridement with partial closure of fasciotomies POD 1 Wound VAC will continue to be maintained at 125 mmHg DPC 3-1 Pin care twice a day Elevation and ice Toradol Lovenox plan for surgery tomorrow for I&D and fasciotomy closure right leg with Dr. Genoveva Sahu,Cuco THOMAS Apr 04, 2017 07:31
[2017-04-04] MEDS: LACTATED RINGER'S 1000 ML INJ 1,000 ML IV SCH ×2 (07:36→17:36)
[2017-04-04 08:00] VITALS: BP 145/79; PULSE 99; RESP 17; TEMP 96.4; O2SAT 98
[2017-04-04] MEDS ORDERED: MAGNESIUM CITRATE SOLN 300 ML BTL PO ONE (08:00)
[2017-04-04] MEDS: QUEtiapine FUMARATE 100 MG TAB PO SCH ×2 (08:50→21:47)
[2017-04-04] MEDS: LIDOCAINE HCL 5% PATCH T-DERMAL SCH (08:50)
[2017-04-04] MEDS: DOCUSATE SODIUM 50 MG/SENNA 8.6 MG TAB PO SCH ×2 (08:50→21:00)
[2017-04-04] MEDS: LACTULOSE SYRUP 20 GM/30 ML CUP PO SCH (08:50)
[2017-04-04] MEDS: MAGNESIUM HYDROXIDE SUSP 30 ML CUP PO SCH ×2 (08:51→21:00)
[2017-04-04] MEDS: SODIUM CHLORIDE 0.9% FLUSH 5 ML FLUSH IVF SCH ×2 (08:52→21:50)
[2017-04-04 12:00] VITALS: BP 155/85; PULSE 116; RESP 18; TEMP 96.6; O2SAT 99
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
[2017-04-04 16:00] VITALS: BP 137/78; PULSE 105; RESP 17; TEMP 98.3; O2SAT 99
[2017-04-04 20:00] VITALS: BP 130/77; PULSE 94; RESP 17; TEMP 99.1; O2SAT 97
[2017-04-05] VITALS: BP 137/81; PULSE 108; RESP 17; TEMP 99; O2SAT 95
[2017-04-05] MEDS: ACETAMINOPHEN/HYDROcodone 325 MG/5 MG TAB PO PRN ×4 (02:07→20:37)
[2017-04-05] MEDS: LACTATED RINGER'S 1000 ML INJ 1,000 ML IV SCH ×2 (03:36→20:43)
[2017-04-05] MEDS: METHOCARBAMOL 500 MG TAB PO SCH ×3 (05:17→22:51)
[2017-04-05] MEDS: ceFAZolin 2 GM PREMIX 50 ML IV SCH ×3 (05:17→20:37)
[2017-04-05] MEDS: ENOXAPARIN SODIUM 30 MG/0.3 ML SYRINGE SQ SCH (05:20)
--- NOTE | 2017-04-05 06:47 | PD.ORT.PN ---
Subjective Subjective Remarks Resting comfortably. Alert and oriented. All questions answered Objective Vitals Vital Signs Date Time Temp Pulse Resp B/P (MAP) Pulse Ox O2 Delivery O2 Flow Rate FiO2 04/05/17 00:00 99.0 108 17 137/81 (99) 95 04/04/17 21:45 Room Air 04/04/17 20:00 99.1 94 17 130/77 (94) 97 04/04/17 19:42 18 04/04/17 16:00 98.3 105 17 137/78 (97) 99 04/04/17 12:00 96.6 116 18 155/85 (108) 99 04/04/17 08:40 99 Room Air 04/04/17 08:00 96.4 99 17 145/79 (101) 98 I/O 04/04/17 04/04/17 04/04/17 04/05/17 04/05/17 04/05/17 07:00 15:00 23:00 07:00 15:00 23:00 Intake Total 290 ml 1250 ml 650 ml Output Total 950 ml 400 ml Balance 290 ml 300 ml 250 ml Intake Oral 1200 ml 240 ml IV Total 290 ml 50 ml 410 ml Output Urine Total 900 ml 400 ml Drainage Total 50 ml # Bowel Movements 2 Result Diagram: 04/04/175 04/04/17 0445 Imaging Last 24 hours Impressions Knee X-Ray 03/30/17 0000 Signed Impressions: Service Date/Time: Thursday, March 30, 2017 07:56 - CONCLUSION: Tibial fracture fracture as described above, described in detail on CT scan of fibula and tibia 03/29/2017 Kirt Maldonado MD FACR Chest X-Ray 03/30/17 0000 Signed Impressions: Service Date/Time: Thursday, March 30, 2017 09:24 - CONCLUSION: 1. Endotracheal tube in good position 3 cm above the valery. 2. Nasogastric tube in good position below the diaphragm. 3. No acute focal pulmonary infiltrate or pulmonary vascular congestion. 4. Stable acute fractures involving posterior lateral aspect of the left eighth and ninth ribs. Fracisco Goodson MD Objective Remarks Right lower extremity: Clean dry dressings intact with wound VAC in place. External fixator in place. Compartments soft. Distally intact distal pulses. moves toes on R foot well. no pain with passive stretch. Assessment & Plan Assessment and Plan 1) Right severely comminuted tibia plateau and proximal tibia shaft fractures with external fixation and return back to OR same day for fasciotomies POD 6 Irrigation debridement with partial closure of fasciotomies POD 2 Wound VAC will continue to be maintained at 125 mmHg DPC 3-1 Pin care twice a day Elevation and ice Toradol Lovenox Nothing by mouth plan for surgery today for I&D and fasciotomy closure right leg with Dr. Genoveva Sahu,Cuco THOMAS Apr 05, 2017 06:47
[2017-04-05 07:33] VITALS: BP 157/85; PULSE 90; RESP 12; TEMP 98.4; O2SAT 97
[2017-04-05] MEDS: SODIUM CHLORIDE 0.9% FLUSH 5 ML FLUSH IVF SCH ×2 (09:00→20:38)
[2017-04-05] MEDS: DOCUSATE SODIUM 50 MG/SENNA 8.6 MG TAB PO SCH ×2 (09:00→20:38)
[2017-04-05] MEDS: MAGNESIUM HYDROXIDE SUSP 30 ML CUP PO SCH ×2 (09:00→20:38)
[2017-04-05] MEDS: LACTULOSE SYRUP 20 GM/30 ML CUP PO SCH (09:00)
[2017-04-05] MEDS: QUEtiapine FUMARATE 100 MG TAB PO SCH ×2 (10:54→20:38)
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
[2017-04-05 11:20] VITALS: BP 160/92; PULSE 90; RESP 12; TEMP 97.8; O2SAT 95
[2017-04-05] MEDS ORDERED: PHENYLEPH/NS 1000 MCG/10 ML SYR IV ONE (12:00)
[2017-04-05] MEDS ORDERED: PROPOFOL 200 MG/20 ML AMP IV ONE (12:00)
[2017-04-05] MEDS ORDERED: LIDOCAINE HCL 1% PF 5 ML AMPULE OTHER ONE (12:00)
[2017-04-05] MEDS ORDERED: SODIUM CHLOR 0.9% 250 ML INJ 250 ML IV ONE (12:00)
[2017-04-05] MEDS ORDERED: DEXAMETHASONE SOD PHOS 4 MG/ML VIAL IV ONE (12:00)
[2017-04-05] MEDS ORDERED: LACTATED RINGER'S 1000 ML INJ 1,000 ML IV ONE (12:00)
[2017-04-05] MEDS ORDERED: ONDANSETRON HCL 4 MG/2 ML VIAL IV PUSH ONE (12:00)
[2017-04-05] MEDS ORDERED: MIDAZOLAM HCL 2 MG/2 ML VIAL IV ONE (12:00)
[2017-04-05] MEDS ORDERED: GENTAMICIN SULFATE 80 MG/2 ML VIAL ONE (12:18)
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
[2017-04-05] MEDS ORDERED: VANCOMYCIN HCL 1000 MG VIAL ONE (13:22)
[2017-04-05] MEDS ORDERED: ceFAZolin INJ 1,000 MG VIAL ONE (13:22)
--- NOTE | 2017-04-05 14:12 | PD.OP ---
cc: Liliana Tomas MD Operative Report Preoperative Diagnosis: (1) Comminuted fracture of shaft of tibia (2) Comminuted fracture of shaft of fibula Comminuted right tibia fracture with subsequent compartment syndrome, s/p fasciotomies with lateral wound remaining open Postoperative Diagnosis: same Procedure: Irrigation and debridement right leg lateral fasciotomy with closure of fasciotomy wound Surgeon: Liliana Tomas Cold Strip Roller(s): Oliver Krishna PA-C Operation and Findings: The surgical procedure was assisted by physician therapy assistant, Oliver Krishna. The P.A.'s presence was necessary throughout this case for the manipulation and positioning of the surgical extremity. He was assisting me throughout the duration of this procedure. The skill set of a physician therapy assistant was medically necessary to complete this procedure. During the surgical case the surgical pathologist was working at the back table and the physician therapy assistant was directly assisting me. Operation and Findings: The patient sustained comminuted right tibia fracture treated with closed reduction and external fixation. He also developed compartment syndrome previously treated with fasciotomies. He also has already had the medial fasciotomy wound closed, however, the lateral wound was unable to be closed at last surgery. He returned to the operating room today for scheduled closure fasciotomies. Timeout procedure was performed. The patient received preoperative antibiotics. Right leg was prepped with alcohol followed by Hibiclens and draped usual sterile fashion. Procedure began with irrigation of the fasciotomies. The muscle appeared to be healthy along the lateral calf. Incision was thoroughly irrigated. At this point attention was turned towards closure of the lateral fasciotomy. Subcutaneous tissues closed with 3-0 PDS. Skin was now closed with 3-0 nylon. A combination of retention suture and vertical mattress sutures were utilized. The lateral fasciotomy was completely closed with minimal skin tension. At this point, sterile dressings were placed and the patient was awoken from general anesthesia. Disposition: Plan will be for Dr. García to take the patient back to the OR next week for internal fixation of his right tibia. Liliana Tomas MD Apr 05, 2017 14:11
[2017-04-05] MEDS ORDERED: Post-op Orders (for Pharmacy) MISC XX ONE (14:30)
[2017-04-05] MEDS ORDERED: DO NOT ADM ANY ANTICOAGULANT DRUGS PRN (15:00)
[2017-04-05 16:00] VITALS: BP 159/86; PULSE 97; RESP 20; TEMP 97.2; O2SAT 97
[2017-04-05 20:00] VITALS: BP 146/97; PULSE 104; RESP 17; TEMP 99.7; O2SAT 99
[2017-04-05] MEDS: diphenhydrAMINE HCL 25 MG CAP PO PRN (22:51)
[2017-04-06] VITALS: BP 119/79; PULSE 93; RESP 18; TEMP 98.3; O2SAT 99
[2017-04-06 04:00] VITALS: BP 141/79; PULSE 85; RESP 17; TEMP 98.6; O2SAT 98
[2017-04-06] MEDS: METHOCARBAMOL 500 MG TAB PO SCH ×3 (04:24→21:24)
[2017-04-06] MEDS: ACETAMINOPHEN/HYDROcodone 325 MG/5 MG TAB PO PRN ×5 (04:24→21:27)
[2017-04-06] MEDS: ceFAZolin 2 GM PREMIX 50 ML IV SCH (04:24)
[2017-04-06] MEDS: ENOXAPARIN SODIUM 30 MG/0.3 ML SYRINGE SQ SCH ×2 (06:09→18:14)
[2017-04-06 07:00] LABS: HEMATOCRIT 27.1 % (39.0-51.0); REVIEW FLAG FINAL
--- NOTE | 2017-04-06 07:26 | PD.ORT.PN ---
Subjective Subjective Remarks Resting comfortably. Alert and oriented. All questions answered Objective Vitals Vital Signs Date Time Temp Pulse Resp B/P (MAP) Pulse Ox O2 Delivery O2 Flow Rate FiO2 04/06/17 04:00 98.6 85 17 141/79 (99) 98 04/06/17 03:21 21 04/06/17 00:00 98.3 93 18 119/79 (92) 99 04/05/17 20:40 Room Air 04/05/17 20:00 99.7 104 17 146/97 (113) 99 04/05/17 16:00 97.2 97 20 159/86 (110) 97 04/05/17 15:00 98.1 90 16 147/88 (107) 98 Room Air 04/05/17 14:45 86 16 150/88 (108) 100 Room Air 04/05/17 14:30 92 16 139/79 (99) 100 Room Air 04/05/17 14:25 97.5 91 16 128/74 (92) 98 Nasal Cannula 2 04/05/17 11:20 97.8 90 12 160/92 (114) 95 04/05/17 07:33 98.4 90 12 157/85 (109) 97 I/O 04/05/17 04/05/17 04/05/17 04/06/17 04/06/17 04/06/17 07:00 15:00 23:00 07:00 15:00 23:00 Intake Total 650 ml 600 ml 530 ml 522 ml Output Total 450 ml 480 ml 1490 ml 1150 ml Balance 200 ml 120 ml -960 ml -628 ml Intake Oral 240 ml 480 ml 240 ml IV Total 410 ml 50 ml 282 ml Other 600 ml Output Urine Total 400 ml 475 ml 1490 ml 1150 ml Drainage Total 50 ml Estimated Blood Loss 5 ml # Bowel Movements 0 Result Diagram: 04/06/17 0459 04/04/17 0445 Imaging Last 24 hours Impressions Knee X-Ray 03/30/17 0000 Signed Impressions: Service Date/Time: Thursday, March 30, 2017 07:56 - CONCLUSION: Tibial fracture fracture as described above, described in detail on CT scan of fibula and tibia 03/29/2017 Kirt Maldonado MD FACR Chest X-Ray 03/30/17 0000 Signed Impressions: Service Date/Time: Thursday, March 30, 2017 09:24 - CONCLUSION: 1. Endotracheal tube in good position 3 cm above the valery. 2. Nasogastric tube in good position below the diaphragm. 3. No acute focal pulmonary infiltrate or pulmonary vascular congestion. 4. Stable acute fractures involving posterior lateral aspect of the left eighth and ninth ribs. Fracisco Goodson MD Objective Remarks Right lower extremity: Clean dry dressings intact. External fixator in place. Compartments soft. Distally intact distal pulses. moves toes on R foot well. no pain with passive stretch. Assessment & Plan Assessment and Plan 1) Right severely comminuted tibia plateau and proximal tibia shaft fractures with external fixation and return back to OR same day for fasciotomies POD 7 Irrigation debridement with closure of fasciotomies POD 1 Elevation and ice Toradol Lovenox We'll plan for surgery next week if swelling improves Cuco Sahu Jr. Apr 06, 2017 07:26
[2017-04-06 08:00] VITALS: BP 154/90; PULSE 81; RESP 19; TEMP 98.1; O2SAT 97
[2017-04-06] MEDS: LIDOCAINE HCL 5% PATCH T-DERMAL SCH (08:21)
[2017-04-06] MEDS: QUEtiapine FUMARATE 100 MG TAB PO SCH ×2 (08:22→21:24)
[2017-04-06] MEDS: DOCUSATE SODIUM 50 MG/SENNA 8.6 MG TAB PO SCH ×2 (08:22→21:24)
[2017-04-06] MEDS: SODIUM CHLORIDE 0.9% FLUSH 5 ML FLUSH IVF SCH ×2 (08:23→21:29)
[2017-04-06] MEDS: MAGNESIUM HYDROXIDE SUSP 30 ML CUP PO SCH ×2 (09:00→21:00)
[2017-04-06] MEDS: LACTULOSE SYRUP 20 GM/30 ML CUP PO SCH (09:00)
[2017-04-06 09:12] VITALS: O2SAT 98
[2017-04-06] MEDS: LACTATED RINGER'S 1000 ML INJ 1,000 ML IV SCH ×2 (09:36→19:36)
[2017-04-06 12:00] VITALS: BP 139/85; PULSE 109; RESP 21; TEMP 99.1; O2SAT 98
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
[2017-04-06] MEDS ORDERED: MAGN30S PO (20:07)
[2017-04-06] MEDS ORDERED: PERI PO (20:07)
[2017-04-06 21:15] VITALS: BP 137/81; PULSE 93; RESP 18; TEMP 99.4; O2SAT 96
[2017-04-06] MEDS: diphenhydrAMINE HCL 25 MG CAP PO PRN (21:27)
[2017-04-07] VITALS (8 sets, daily range): BP systolic 122–142; BP diastolic 74–90; PULSE 92–109; RESP 17–20; TEMP 97.7–99; O2SAT 95–99
[2017-04-07] MEDS: MORPHINE SULFATE 4 MG/ML INJ IV PUSH PRN ×2 (00:52→20:11)
[2017-04-07] MEDS: ACETAMINOPHEN/HYDROcodone 325 MG/5 MG TAB PO PRN ×5 (04:49→23:50)
[2017-04-07] MEDS: METHOCARBAMOL 500 MG TAB PO SCH ×3 (04:49→20:11)
[2017-04-07] MEDS: ENOXAPARIN SODIUM 30 MG/0.3 ML SYRINGE SQ SCH ×2 (05:03→17:57)
[2017-04-07] MEDS: LACTATED RINGER'S 1000 ML INJ 1,000 ML IV SCH (05:36)
[2017-04-07] MEDS: SODIUM CHLORIDE 0.9% FLUSH 5 ML FLUSH IVF SCH ×2 (09:00→20:15)
[2017-04-07] MEDS: LACTULOSE SYRUP 20 GM/30 ML CUP PO SCH (09:00)
[2017-04-07] MEDS: MAGNESIUM HYDROXIDE SUSP 30 ML CUP PO SCH ×2 (09:00→20:15)
[2017-04-07] MEDS: DOCUSATE SODIUM 50 MG/SENNA 8.6 MG TAB PO SCH ×2 (09:11→20:15)
[2017-04-07] MEDS: QUEtiapine FUMARATE 100 MG TAB PO SCH ×2 (09:11→20:11)
[2017-04-07] MEDS: LIDOCAINE HCL 5% PATCH T-DERMAL SCH (09:13)
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
--- NOTE | 2017-04-07 14:01 | PD.ORT.PN ---
Subjective Subjective Remarks Patient comfortable. Pain controlled. NAD. Spouse at bedside. Objective Vitals Vital Signs Date Time Temp Pulse Resp B/P (MAP) Pulse Ox O2 Delivery O2 Flow Rate FiO2 04/07/17 13:26 98 04/07/17 12:00 99.0 107 17 139/74 (95) 98 04/07/17 08:00 97.7 109 18 122/79 (93) 97 04/07/17 06:00 20 04/07/17 04:55 98.9 97 18 142/90 (107) 98 04/07/17 00:50 98.6 92 18 140/80 (100) 99 04/06/17 21:15 99.4 93 18 137/81 (99) 96 I/O 04/06/17 04/06/17 04/06/17 04/07/17 04/07/17 04/07/17 07:00 15:00 23:00 07:00 15:00 23:00 Intake Total 522 ml 240 ml 1200 ml Output Total 1150 ml 1800 ml Balance -628 ml 240 ml -600 ml Intake Oral 240 ml 240 ml 1200 ml IV Total 282 ml Output Urine Total 1150 ml 1800 ml # Voids 2 # Bowel Movements 1 Result Diagram: 04/06/17 0459 04/04/17 0445 Imaging Last 24 hours Impressions Knee X-Ray 03/30/17 0000 Signed Impressions: Service Date/Time: Thursday, March 30, 2017 07:56 - CONCLUSION: Tibial fracture fracture as described above, described in detail on CT scan of fibula and tibia 03/29/2017 Kirt Maldonado MD FACR Chest X-Ray 03/30/17 0000 Signed Impressions: Service Date/Time: Thursday, March 30, 2017 09:24 - CONCLUSION: 1. Endotracheal tube in good position 3 cm above the valery. 2. Nasogastric tube in good position below the diaphragm. 3. No acute focal pulmonary infiltrate or pulmonary vascular congestion. 4. Stable acute fractures involving posterior lateral aspect of the left eighth and ninth ribs. Fracisco Goodson MD Objective Remarks Right lower extremity Clean dry dressings intact. External fixator in place. Compartments soft. Distally motor, neuro and sensory intact. Assessment & Plan Assessment and Plan 1) Right severely comminuted tibia plateau and proximal tibia shaft fractures with external fixation and return back to OR same day for fasciotomies POD 8 Irrigation debridement with closure of fasciotomies POD 2 Elevation and ice Pain management -Toradol DVT prophylaxis - Lovenox Plan to return to OR next week if swelling improves Monitor Liam Sosa Apr 07, 2017 14:01
[2017-04-07] MEDS: diphenhydrAMINE HCL 25 MG CAP PO PRN (20:12)
[2017-04-08] VITALS: BP 137/86; PULSE 113; RESP 20; TEMP 99.6; O2SAT 97
[2017-04-08] MEDS: METHOCARBAMOL 500 MG TAB PO SCH ×3 (04:55→19:49)
[2017-04-08] MEDS: ACETAMINOPHEN/HYDROcodone 325 MG/5 MG TAB PO PRN ×5 (04:56→21:59)
[2017-04-08] MEDS: ENOXAPARIN SODIUM 30 MG/0.3 ML SYRINGE SQ SCH ×2 (04:57→17:30)
[2017-04-08 08:00] VITALS: BP 127/77; PULSE 92; RESP 18; TEMP 97.8; O2SAT 99
[2017-04-08] MEDS: LACTULOSE SYRUP 20 GM/30 ML CUP PO SCH (09:00)
[2017-04-08] MEDS: MAGNESIUM HYDROXIDE SUSP 30 ML CUP PO SCH ×2 (09:00→19:49)
[2017-04-08] MEDS: SODIUM CHLORIDE 0.9% FLUSH 5 ML FLUSH IVF SCH ×2 (09:00→19:50)
[2017-04-08] MEDS: LIDOCAINE HCL 5% PATCH T-DERMAL SCH (09:10)
[2017-04-08] MEDS: QUEtiapine FUMARATE 100 MG TAB PO SCH ×2 (09:11→19:48)
[2017-04-08] MEDS: DOCUSATE SODIUM 50 MG/SENNA 8.6 MG TAB PO SCH ×2 (09:11→19:46)
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
--- NOTE | 2017-04-08 09:50 | PD.ORT.PN ---
Subjective Subjective Remarks Patient comfortable. Pain controlled. NAD. Objective Vitals Vital Signs Date Time Temp Pulse Resp B/P (MAP) Pulse Ox O2 Delivery O2 Flow Rate FiO2 04/08/17 08:00 97.8 92 18 127/77 (94) 99 04/08/17 05:56 18 04/08/17 00:00 99.6 113 20 137/86 (103) 97 04/07/17 22:10 18 04/07/17 20:45 Room Air 04/07/17 20:00 98.7 105 20 138/79 (98) 95 04/07/17 17:48 97 21 04/07/17 16:00 98.9 101 17 130/84 (99) 97 04/07/17 13:26 98 04/07/17 12:00 99.0 107 17 139/74 (95) 98 I/O 04/07/17 04/07/17 04/07/17 04/08/17 04/08/17 04/08/17 07:00 15:00 23:00 07:00 15:00 23:00 Intake Total 680 ml 480 ml Output Total 1000 ml 800 ml Balance -320 ml -320 ml Intake Oral 680 ml 480 ml Output Urine Total 1000 ml 800 ml # Voids 2 # Bowel Movements 0 0 Result Diagram: 04/06/17 0459 04/04/17 0445 Imaging Last 24 hours Impressions Knee X-Ray 03/30/17 0000 Signed Impressions: Service Date/Time: Thursday, March 30, 2017 07:56 - CONCLUSION: Tibial fracture fracture as described above, described in detail on CT scan of fibula and tibia 03/29/2017 Kirt Maldonado MD FACR Chest X-Ray 03/30/17 0000 Signed Impressions: Service Date/Time: Thursday, March 30, 2017 09:24 - CONCLUSION: 1. Endotracheal tube in good position 3 cm above the valery. 2. Nasogastric tube in good position below the diaphragm. 3. No acute focal pulmonary infiltrate or pulmonary vascular congestion. 4. Stable acute fractures involving posterior lateral aspect of the left eighth and ninth ribs. Fracisco Goodson MD Objective Remarks Right lower extremity swelling improving Pin site C/D/I. External fixator in place. Compartments soft. Distally motor, neuro and sensory intact. Assessment & Plan Assessment and Plan 1) Right severely comminuted tibia plateau and proximal tibia shaft fractures with external fixation and return back to OR same day for fasciotomies POD 9 Irrigation debridement with closure of fasciotomies POD 3 Daily dressing to pin site Elevation and ice Pain management -Toradol DVT prophylaxis - Lovenox Plan to return to OR next week if swelling improves Monitor Liam Sosa Apr 08, 2017 09:50
[2017-04-08 12:00] VITALS: BP 135/88; PULSE 114; RESP 18; TEMP 98.9; O2SAT 99
[2017-04-08 16:00] VITALS: BP 135/80; PULSE 109; RESP 18; TEMP 99.4; O2SAT 97
[2017-04-08] MEDS: MORPHINE SULFATE 4 MG/ML INJ IV PUSH PRN ×2 (18:18→23:20)
[2017-04-08 18:55] VITALS: O2SAT 97
[2017-04-08] MEDS: diphenhydrAMINE HCL 25 MG CAP PO PRN (19:54)
[2017-04-08 20:00] VITALS: BP 128/87; PULSE 109; RESP 20; TEMP 97.9; O2SAT 95
[2017-04-09] VITALS: BP 135/83; PULSE 109; RESP 20; TEMP 98.1; O2SAT 96
[2017-04-09] MEDS: ACETAMINOPHEN/HYDROcodone 325 MG/5 MG TAB PO PRN ×2 (02:33→10:31)
[2017-04-09] MEDS: MORPHINE SULFATE 4 MG/ML INJ IV PUSH PRN ×2 (03:23→08:19)
[2017-04-09 04:08] LABS: AUTOMATED NEUTROPHIL # 8.4 TH/MM3 (1.8-7.7); BASOPHIL # 0.2 TH/MM3 (0-0.2); BASOPHIL % 1.3 % (0.0-2.0); EOSINOPHIL # 0.4 TH/MM3 (0-0.4); EOSINOPHIL % 3.5 % (0.0-4.0); HEMATOCRIT 29.5 % (39.0-51.0); HEMO FLAGS DIFF FINAL; LYMPH % 14.7 % (9.0-44.0); LYMPHOCYTE # 1.8 TH/MM3 (1.0-4.8); MEAN CELL VOLUME 90.3 FL (80.0-100.0); MEAN CORPUSCULAR HEMOGLOBIN 30.4 PG (27.0-34.0); MEAN CORPUSCULAR HGB CONC 33.7 % (32.0-36.0); MONO % 10.6 % (0.0-8.0); NEUT % 69.9 % (16.0-70.0); PLATELET COUNT 743 TH/MM3 (150-450); RED BLOOD COUNT 3.26 MIL/MM3 (4.50-5.90); RED CELL DISTRIBUTION WIDTH 15.6 % (11.6-17.2); WHITE BLOOD COUNT 11.9 TH/MM3 (4.0-11.0)
[2017-04-09 04:22] LABS: BICARBONATE 32.1 MEQ/L (21.0-32.0)
[2017-04-09] MEDS: METHOCARBAMOL 500 MG TAB PO SCH ×3 (05:16→19:49)
[2017-04-09] MEDS: ENOXAPARIN SODIUM 30 MG/0.3 ML SYRINGE SQ SCH (05:19)
--- NOTE | 2017-04-09 07:19 | PD.ORT.PN ---
Subjective Subjective Remarks s/p exfix with fasciotomy right proximal tibia POD 4 s/p I&D with fasciotomy closure right leg doing well. pain controlled. extubated. no complaints Objective Vitals Vital Signs Date Time Temp Pulse Resp B/P (MAP) Pulse Ox O2 Delivery O2 Flow Rate FiO2 04/09/17 03:41 18 04/09/17 03:41 18 04/09/17 00:00 98.1 109 20 135/83 (100) 96 04/08/17 20:00 97.9 109 20 128/87 (101) 95 04/08/17 18:55 97 04/08/17 16:00 99.4 109 18 135/80 (98) 97 04/08/17 12:00 98.9 114 18 135/88 (104) 99 04/08/17 08:00 97.8 92 18 127/77 (94) 99 I/O 04/08/17 04/08/17 04/08/17 04/09/17 04/09/17 04/09/17 07:00 15:00 23:00 07:00 15:00 23:00 Intake Total 480 ml 1080 ml 480 ml Output Total 800 ml 600 ml 1450 ml Balance -320 ml 480 ml -970 ml Intake Oral 480 ml 1080 ml 480 ml Output Urine Total 800 ml 600 ml 1450 ml # Voids 8 # Bowel Movements 0 2 0 Result Diagram: 04/09/17 0335 04/09/17 0335 Imaging Last 24 hours Impressions Knee X-Ray 03/30/17 0000 Signed Impressions: Service Date/Time: Thursday, March 30, 2017 07:56 - CONCLUSION: Tibial fracture fracture as described above, described in detail on CT scan of fibula and tibia 03/29/2017 Kirt Maldonado MD FACR Chest X-Ray 03/30/17 0000 Signed Impressions: Service Date/Time: Thursday, March 30, 2017 09:24 - CONCLUSION: 1. Endotracheal tube in good position 3 cm above the valery. 2. Nasogastric tube in good position below the diaphragm. 3. No acute focal pulmonary infiltrate or pulmonary vascular congestion. 4. Stable acute fractures involving posterior lateral aspect of the left eighth and ninth ribs. Fracisco Goodson MD Objective Remarks Right lower extremity swelling improving Pin site C/D/I. External fixator in place. Compartments soft. Distally motor, neuro and sensory intact. Assessment & Plan Assessment and Plan 1) Right severely comminuted tibia plateau and proximal tibia shaft fractures with external fixation and return back to OR same day for fasciotomies POD 10 Irrigation debridement with closure of fasciotomies POD 4 Daily dressing to pin site Elevation and ice Pain management -Toradol 30mg x 3 doses for swelling DVT prophylaxis - Lovenox. will hold after AM dose today NPO after MN plan for possible OR tomorrow for surgery if swelling safe sign consents Oliver Krishna Apr 09, 2017 07:19
[2017-04-09 08:00] VITALS: BP 140/92; PULSE 103; RESP 18; TEMP 97.4; O2SAT 98
[2017-04-09] MEDS: QUEtiapine FUMARATE 100 MG TAB PO SCH ×2 (08:23→19:49)
[2017-04-09] MEDS: SODIUM CHLORIDE 0.9% FLUSH 5 ML FLUSH IVF SCH ×2 (09:00→19:51)
[2017-04-09] MEDS: DOCUSATE SODIUM 50 MG/SENNA 8.6 MG TAB PO SCH ×2 (09:00→19:49)
[2017-04-09] MEDS: MAGNESIUM HYDROXIDE SUSP 30 ML CUP PO SCH ×2 (09:00→19:48)
[2017-04-09] MEDS: LACTULOSE SYRUP 20 GM/30 ML CUP PO SCH (09:00)
[2017-04-09] MEDS: LIDOCAINE HCL 5% PATCH T-DERMAL SCH (09:00)
[2017-04-09] MEDS: KETOROLAC TROMETHAMINE 30 MG/ML (IVP) VIAL IV PUSH SCH ×3 (10:25→19:50)
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
[2017-04-09] MEDS ORDERED: oxyCODONE/ACETAMINOPHEN 5 MG/325 MG TAB PO PRN (11:45)
[2017-04-09 12:00] VITALS: BP 128/80; PULSE 110; RESP 17; TEMP 98.1; O2SAT 98
[2017-04-09 16:00] VITALS: BP 131/90; PULSE 104; RESP 18; TEMP 97.7; O2SAT 97
[2017-04-09] MEDS: diphenhydrAMINE HCL 25 MG CAP PO PRN (18:30)
[2017-04-09] MEDS: oxyCODONE/ACETAMINOPHEN 7.5 MG/325 MG TAB PO PRN ×2 (18:30→23:49)
[2017-04-09 20:00] VITALS: BP 133/76; PULSE 104; RESP 18; TEMP 98.8; O2SAT 95
[2017-04-10] VITALS (10 sets, daily range): BP systolic 125–166; BP diastolic 60–98; PULSE 92–162; RESP 17–18; TEMP 97.1–98.5; O2SAT 95–98
[2017-04-10] MEDS ORDERED: LACTATED RINGER'S 1000 ML IV PRN (03:00)
[2017-04-10] MEDS ORDERED: SODIUM CHLORID 0.9% 500 ML IV PRN (03:00)
[2017-04-10] MEDS: MORPHINE SULFATE 4 MG/ML INJ IV PUSH PRN ×3 (03:22→22:14)
[2017-04-10] MEDS: METHOCARBAMOL 500 MG TAB PO SCH ×3 (05:06→20:20)
[2017-04-10] MEDS: oxyCODONE/ACETAMINOPHEN 7.5 MG/325 MG TAB PO PRN ×3 (05:06→20:20)
--- NOTE | 2017-04-10 06:40 | PD.ORT.PN ---
Subjective Subjective Remarks s/p exfix with fasciotomy right proximal tibia POD 5 s/p I&D with fasciotomy closure right leg doing well. pain controlled. no complaints Objective Vitals Vital Signs Date Time Temp Pulse Resp B/P (MAP) Pulse Ox O2 Delivery O2 Flow Rate FiO2 04/10/17 06:00 98.5 99 17 148/88 (108) 96 04/10/17 04:00 98.5 99 17 148/88 (108) 96 04/10/17 00:00 98.2 113 18 125/77 (93) 96 04/09/17 20:00 98.8 104 18 133/76 (95) 95 04/09/17 16:00 97.7 104 18 131/90 (104) 97 04/09/17 12:00 98.1 110 17 128/80 (96) 98 04/09/17 08:00 97.4 103 18 140/92 (108) 98 I/O 04/09/17 04/09/17 04/09/17 04/10/17 04/10/17 04/10/17 07:00 15:00 23:00 07:00 15:00 23:00 Intake Total 480 ml 1450 ml Output Total 1450 ml 800 ml Balance -970 ml 650 ml Intake Oral 480 ml 1450 ml Output Urine Total 1450 ml 800 ml # Voids 2 # Bowel Movements 0 2 Result Diagram: 04/09/17 0335 04/09/17 0335 Imaging Last 24 hours Impressions Knee X-Ray 03/30/17 0000 Signed Impressions: Service Date/Time: Thursday, March 30, 2017 07:56 - CONCLUSION: Tibial fracture fracture as described above, described in detail on CT scan of fibula and tibia 03/29/2017 Kirt Maldonado MD FACR Chest X-Ray 03/30/17 0000 Signed Impressions: Service Date/Time: Thursday, March 30, 2017 09:24 - CONCLUSION: 1. Endotracheal tube in good position 3 cm above the valery. 2. Nasogastric tube in good position below the diaphragm. 3. No acute focal pulmonary infiltrate or pulmonary vascular congestion. 4. Stable acute fractures involving posterior lateral aspect of the left eighth and ninth ribs. Fracisco Goodson MD Objective Remarks Right lower extremity swelling improving Pin site C/D/I. External fixator in place. Compartments soft. Distally motor, neuro and sensory intact. Assessment & Plan Assessment and Plan 1) Right severely comminuted tibia plateau and proximal tibia shaft fractures with external fixation and return back to OR same day for fasciotomies POD 11 Irrigation debridement with closure of fasciotomies POD 5 Daily dressing to pin site Elevation and ice Pain management DVT prophylaxis - Lovenox NPO surgery today Oliver Krishna Apr 10, 2017 06:40
[2017-04-10] MEDS: MAGNESIUM HYDROXIDE SUSP 30 ML CUP PO SCH ×2 (08:31→20:20)
[2017-04-10] MEDS: LACTULOSE SYRUP 20 GM/30 ML CUP PO SCH (08:31)
[2017-04-10] MEDS: LIDOCAINE HCL 5% PATCH T-DERMAL SCH (08:31)
[2017-04-10] MEDS: DOCUSATE SODIUM 50 MG/SENNA 8.6 MG TAB PO SCH ×2 (08:31→20:20)
[2017-04-10] MEDS: SODIUM CHLORIDE 0.9% FLUSH 5 ML FLUSH IVF SCH (09:00)
[2017-04-10] MEDS: QUEtiapine FUMARATE 100 MG TAB PO SCH ×2 (09:00→20:20)
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
[2017-04-10] MEDS ORDERED: GENTAMICIN SULFATE 80 MG/2 ML VIAL ONE (11:25)
[2017-04-10] MEDS ORDERED: VANCOMYCIN HCL 1000 MG VIAL ONE (12:05)
[2017-04-10] MEDS ORDERED: ceFAZolin INJ 1,000 MG VIAL ONE (12:06)
[2017-04-10] MEDS ORDERED: MISCELLANEOUS NURSING INFORMATION XX PRN (14:30)
[2017-04-10] MEDS ORDERED: Post-op Orders (for Pharmacy) MISC XX ONE (14:30)
--- NOTE | 2017-04-10 14:35 | PD.OP ---
cc: Cesar Pope MD Operative Report Date of Surgery: Apr 10, 2017 Preoperative Diagnosis: Severely comminuted right tibial bicondylar plateau fracture, right tibia shaft fracture Postoperative Diagnosis: Procedure: Revision of external fixation, open reduction total fixation of right tibia shaft, open reduction fixation bicondylar right tibial plateau fracture Anesthesia: Gen. Surgeon: Cesar Pope Employee Benefits Manager(s): MARTHA Madera PA-C The surgical procedure was assisted by my physician assistant auditor. My P.A. presence was necessary throughout this case for the manipulation and positioning of the surgical extremity. My P.A. was assisting me throughout the duration of this procedure. The skill set of a physician assistant auditor was medically necessary to complete this procedure. During the surgical case the light technician was working at the back table and the physician assistant auditor was directly assisting me. Operation and Findings: This patient was seen and evaluated preoperatively. Patient sustained an injury resulting a bicondylar right tibial plateau fracture. Informed consent was obtained preoperatively after detailed discussion of the risks and benefits of surgery. Risk of surgery including bleeding, infection, nonunion, painful hardware, stiffness, loss of motion, arthritis, need for knee replacement, as well as medical complications including blood clots, stroke, heart attack, and were discussed. I also discussed the possibility of using allograft bone graft . Preoperatively the operative site was marked. Patient was brought to the operating room and placed on the operating room table. Intravenous sedation and general endotracheal anesthesia were administered. IV antibiotics were given and a time out procedure was preformed. Procedure began with removal of the external fixator. Clamps were loosened. Bars and clamps were now removed. The pins were left in place. Next,the operative leg was prepped with alcohol followed by Hibiclens and draped in the usual sterile fashion. Next a 10-inch curvilinear incision over the anterolateral knee and tibia. Subcutaneous tissue was treated with Bovie. Iliotibial band was split in line with fibers. Anterior tibialis was elevated. A sub-meniscal arthrotomy was created and the lateral articular surface was visualized. There was significant comminution and depression of the articular surface. At this point attention was turned towards reduction of the tibia shaft fractures. The tibia was comminuted with multiple fragments. The anterior and lateral fragments were manipulated. These fragments reduced easily well. These fragments were reduced to the distal shaft. K wires were used to hold provisional fixation. Fracture tenaculums were used to compress fracture. Multiple 3.5 cortical lag screws were placed from anterior to posterior to compress fracture fragments. Next attention was turned towards the articular surface. A window was made in the metaphyseal region and bone tamps used to elevate the articular surface. Articular surface reduced into excellent alignment. K-wires were used for provisional fixation. At this point cancellous bone graft was packed under the articular surface using a bone tamp. The cortical fragments were now reduced. Fluoroscopy revealed excellent alignment of fracture. A Synthes proximal tibial plate was selected. The longest plate was used to span all the fractures. The plate was provisionally held with K-wires. 3.5 cortical screws were used compress plate to bone distally, and a periarticular clamp was used to compress the medial and lateral tibial plateau fracture fragments together. Large Steinmann pins were placed into the medial and lateral plateau fragments to help rotate them into the correct slope. Multiple locking screws were now placed proximally. Additional screws were placed in the shaft. Multiple cortical screws were placed in the distal segment and tibial shaft. K- wires were removed. Final fluoroscopy showed excellent alignment of fracture with well-placed hardware. The incision was thoroughly irrigated. Incisions were thoroughly irrigated. Attention was now turned to closure. Fascia and iliotibial band were closed with #1 Vicryl,. Subcutaneous tissues closed with 3 -0 Vicryl and skin was closed with kevin. Sterile dressings were applied. Because the fracture was severely unstable, The external fixator was replaced. Multipin clamps were placed back onto the pins. Next fixator construct was created. The external fixator was tightened.The patient was transferred to recovery in stable condition. Cesar Pope MD Apr 10, 2017 14:35
[2017-04-10] MEDS ORDERED: SODIUM CHLORIDE 0.9% FLUSH 10 ML FLUSH IV FLUSH PRN (14:45)
[2017-04-10] MEDS ORDERED: LACTATED RINGER'S 1000 ML INJ 1,000 ML IV SCH (15:00)
[2017-04-10] MEDS ORDERED: ERGOCALCIFEROL (VIT D2) 50,000 UNIT CAP PO SCH (15:00)
[2017-04-10] MEDS ORDERED: *morphine SULFATE 8 MG/ML PERIprocedure ONLY ONE ×2 (15:22→15:36)
[2017-04-10] MEDS ORDERED: DO NOT ADM ANY ANTICOAGULANT DRUGS PRN (15:45)
[2017-04-10] MEDS: ceFAZolin 2 GM PREMIX 50 ML IV SCH (16:39)
[2017-04-10] MEDS: CALCIUM/VITAMIN D 250 MG/125 U TAB PO SCH (16:45)
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
[2017-04-10] MEDS: SODIUM CHLORIDE 0.9% FLUSH 10 ML FLUSH IV FLUSH SCH (20:18)
[2017-04-10] MEDS: diphenhydrAMINE HCL 25 MG CAP PO PRN (20:20)
[2017-04-11] VITALS (7 sets, daily range): BP systolic 121–162; BP diastolic 66–93; PULSE 113–127; RESP 17–18; TEMP 95.5–100.2; O2SAT 95–99
[2017-04-11] MEDS: VANCOMYCIN INJ 1,000 MG in SODIUM CHLOR 0.9% 250 ML INJ 250 ML IV SCH ×2 (00:11→12:26)
[2017-04-11] MEDS: oxyCODONE/ACETAMINOPHEN 7.5 MG/325 MG TAB PO PRN (00:37)
[2017-04-11] MEDS: MORPHINE SULFATE 4 MG/ML INJ IV PUSH PRN (01:19)
[2017-04-11] MEDS ORDERED: NALOXONE HCL 0.4 MG/ML AMP IV PUSH PRN (02:15)
[2017-04-11] MEDS ORDERED: MORPHINE SULFATE 30 MG/30 ML PCA IV SCH (02:15)
[2017-04-11] MEDS: ceFAZolin 2 GM PREMIX 50 ML IV SCH ×3 (02:34→17:43)
[2017-04-11] MEDS: METHOCARBAMOL 500 MG TAB PO SCH ×3 (04:45→20:58)
[2017-04-11] MEDS: diphenhydrAMINE HCL 25 MG CAP PO PRN ×2 (04:46→20:59)
[2017-04-11] MEDS ORDERED: PCA - TOTAL MG MORPHINE DELIVERED PER SHIFT SCH (06:00)
[2017-04-11 06:58] LABS: HEMATOCRIT 24.6 % (39.0-51.0); REVIEW FLAG FINAL
[2017-04-11] MEDS ORDERED: WHEEMIS3 (07:00)
[2017-04-11] MEDS ORDERED: ENDO10TA8 PO (07:00)
[2017-04-11] MEDS ORDERED: WALKER/ADULT/FO1 MIS (07:00)
[2017-04-11] MEDS ORDERED: XARE10TA PO (07:00)
--- NOTE | 2017-04-11 07:33 | PD.ORT.PN ---
Subjective Subjective Remarks POD 6 s/p I&D with fasciotomy closure right leg POD 1 s/p ORIF right tibial plateau and shaft fxs with revision of exfix out of bed with walker. nurse reports he lost balance and fell last night. patient states that pain is not controlled with current meds Objective Vitals Vital Signs Date Time Temp Pulse Resp B/P (MAP) Pulse Ox O2 Delivery O2 Flow Rate FiO2 04/11/17 04:50 16 04/11/17 04:00 100.2 115 17 131/78 (95) 99 04/11/17 03:06 17 04/11/17 03:05 17 04/11/17 02:30 17 04/11/17 00:00 95.5 115 17 132/77 (95) 97 04/10/17 22:18 117 04/10/17 22:14 142 04/10/17 22:11 96 04/10/17 22:10 162 142/60 (87) 97 04/10/17 20:00 97.5 104 17 131/86 (101) 98 04/10/17 16:00 98.2 98 17 168/92 (117) 96 Nasal Cannula 2 04/10/17 16:00 98.4 92 17 166/98 (120) 95 04/10/17 15:30 91 17 164/88 (113) 97 Nasal Cannula 2 04/10/17 15:15 82 17 168/92 (117) 96 Nasal Cannula 2 04/10/17 15:00 98.2 92 15 159/97 (117) 98 Nasal Cannula 2 04/10/17 08:00 97.1 93 17 131/84 (100) 96 I/O 04/10/17 04/10/17 04/10/17 04/11/17 04/11/17 04/11/17 07:00 15:00 23:00 07:00 15:00 23:00 Intake Total 1300 ml 480 ml 1046 ml Output Total 150 ml 1775 ml 400 ml Balance 1150 ml -1295 ml 646 ml Intake Oral 480 ml 240 ml IV Total 806 ml Other 1300 ml Output Urine Total 1775 ml 400 ml Estimated Blood Loss 150 ml # Voids 2 Result Diagram: 04/11/17 0600 04/09/17 0335 Imaging Last 24 hours Impressions Knee X-Ray 03/30/17 0000 Signed Impressions: Service Date/Time: Thursday, March 30, 2017 07:56 - CONCLUSION: Tibial fracture fracture as described above, described in detail on CT scan of fibula and tibia 03/29/2017 Kirt Maldonado MD FACR Chest X-Ray 03/30/17 0000 Signed Impressions: Service Date/Time: Thursday, March 30, 2017 09:24 - CONCLUSION: 1. Endotracheal tube in good position 3 cm above the valery. 2. Nasogastric tube in good position below the diaphragm. 3. No acute focal pulmonary infiltrate or pulmonary vascular congestion. 4. Stable acute fractures involving posterior lateral aspect of the left eighth and ninth ribs. Fracisco Goodson MD Objective Remarks RLE: mild serosanguinous drainage of proximal pin sites and incision. exfix in place. neg karen. good dorsiflexion with no pain. NVI. Assessment & Plan Assessment and Plan 1) Right severely comminuted tibia plateau and proximal tibia shaft fractures with external fixation and return back to OR same day for fasciotomies POD 12 Irrigation debridement with closure of fasciotomies POD 6 ORIF with revision of Exfix - POD 1 pin care BID begin daily dressing changes today with xeroform/4x4/REBECCA lovenox for DVT prophylaxis will adjust [employer] settings today will change oral pain meds to Percocet 7.5 for pain 3-5 and percocet 10 for pain 6-10. encouraged patient to take the oral meds scheduled so as to wean off of the ROLL[employer] CM for DC planning. if doing well, would likely be able to go home with [facility] plan for f/u with Bernardo or MARTHA in 2 weeks Oliver Krishna Apr 11, 2017 07:33
--- NOTE | 2017-04-11 07:34 | HHI.FF ---
Face to Face Verification Diagnosis: (1) Comminuted fracture of shaft of tibia Physical Therapy Gait training Knee: Knee fracture, Protocol: Right, Non weight bearing Right LE Weight Bearing: Non WB, No Strengthening, No Quad Sets Nursing Nursing: Teach and assist BID pin care Dressing Changes: Daily dressing change, Al wrap, 4x4s, Xeroform I have seen patient [place] Salas on 04/11/17. My clinical findings support the need for the requested home health care services because: Ltd mobility - disease progression I certify that my clinical findings support that this patient is homebound because: Post-op weakness Oliver Krishna Apr 11, 2017 07:34
[2017-04-11] MEDS: DOCUSATE SODIUM 50 MG/SENNA 8.6 MG TAB PO SCH ×2 (08:44→21:00)
[2017-04-11] MEDS: LACTULOSE SYRUP 20 GM/30 ML CUP PO SCH (08:44)
[2017-04-11] MEDS: MAGNESIUM HYDROXIDE SUSP 30 ML CUP PO SCH ×2 (08:44→21:00)
[2017-04-11] MEDS: oxyCODONE/ACETAMINOPHEN 10 MG/325 MG TAB PO PRN ×3 (08:45→17:20)
[2017-04-11] MEDS: CHOLECALCIFEROL (VIT D3) 1000 UNIT TAB PO SCH (08:45)
[2017-04-11] MEDS: QUEtiapine FUMARATE 100 MG TAB PO SCH ×2 (08:45→20:58)
[2017-04-11] MEDS: CALCIUM/VITAMIN D 250 MG/125 U TAB PO SCH ×3 (08:45→17:43)
[2017-04-11] MEDS: LIDOCAINE HCL 5% PATCH T-DERMAL SCH (08:45)
[2017-04-11] MEDS: SODIUM CHLORIDE 0.9% FLUSH 10 ML FLUSH IV FLUSH SCH ×2 (08:58→21:00)
[2017-04-11] MEDS ORDERED: fentaNYL 50 MCG/HR PATCH T-DERMAL SCH (11:00)
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
[2017-04-11] MEDS ORDERED: NEUR300C PO (11:07)
[2017-04-11] MEDS ORDERED: METH500T3 PO (11:07)
[2017-04-11] MEDS: GABAPENTIN 300 MG CAP PO SCH ×2 (12:25→17:43)
[2017-04-11] MEDS: ENOXAPARIN SODIUM 30 MG/0.3 ML SYRINGE SQ SCH (12:25)
[2017-04-11] MEDS: BACITRACIN TOP OINT 15 GM TUBE TOPICAL SCH (17:00)
[2017-04-12] VITALS: BP 141/78; PULSE 128; RESP 19; TEMP 100.5; O2SAT 97
[2017-04-12] MEDS: oxyCODONE/ACETAMINOPHEN 10 MG/325 MG TAB PO PRN ×4 (00:07→13:02)
[2017-04-12] MEDS: VANCOMYCIN INJ 1,000 MG in SODIUM CHLOR 0.9% 250 ML INJ 250 ML IV SCH (00:09)
[2017-04-12] MEDS: ENOXAPARIN SODIUM 30 MG/0.3 ML SYRINGE SQ SCH ×2 (02:40→13:02)
[2017-04-12] MEDS: ceFAZolin 2 GM PREMIX 50 ML IV SCH ×2 (02:40→10:11)
[2017-04-12 04:00] VITALS: TEMP 99.5
[2017-04-12] MEDS: METHOCARBAMOL 500 MG TAB PO SCH ×2 (04:48→13:01)
--- NOTE | 2017-04-12 07:06 | PD.ORT.PN ---
Subjective Subjective Remarks POD 7 s/p I&D with fasciotomy closure right leg POD 2 s/p ORIF right tibial plateau and shaft fxs with revision of exfix out of bed with walker. patient reports that pain has improved significantly Objective Vitals Vital Signs Date Time Temp Pulse Resp B/P (MAP) Pulse Ox O2 Delivery O2 Flow Rate FiO2 04/12/17 06:00 18 04/12/17 04:00 99.5 04/12/17 00:00 100.5 128 19 141/78 (99) 97 04/11/17 20:00 98.9 113 18 124/85 (98) 95 04/11/17 16:00 99.4 117 18 134/75 (94) 98 04/11/17 12:00 99.5 127 17 121/66 (84) 99 04/11/17 08:00 99.1 117 18 162/93 (116) 99 I/O 04/11/17 04/11/17 04/11/17 04/12/17 04/12/17 04/12/17 07:00 15:00 23:00 07:00 15:00 23:00 Intake Total 1046 ml 50 ml 1670 ml 240 ml Output Total 400 ml 2275 ml 750 ml Balance 646 ml 50 ml -605 ml -510 ml Intake Oral 240 ml 1370 ml 240 ml IV Total 806 ml 50 ml 300 ml Output Urine Total 400 ml 2275 ml 750 ml # Bowel Movements 0 Result Diagram: 04/11/17 0600 04/09/17 0335 Imaging Last 24 hours Impressions Knee X-Ray 03/30/17 0000 Signed Impressions: Service Date/Time: Thursday, March 30, 2017 07:56 - CONCLUSION: Tibial fracture fracture as described above, described in detail on CT scan of fibula and tibia 03/29/2017 Kirt Maldonado MD FACR Chest X-Ray 03/30/17 0000 Signed Impressions: Service Date/Time: Thursday, March 30, 2017 09:24 - CONCLUSION: 1. Endotracheal tube in good position 3 cm above the valery. 2. Nasogastric tube in good position below the diaphragm. 3. No acute focal pulmonary infiltrate or pulmonary vascular congestion. 4. Stable acute fractures involving posterior lateral aspect of the left eighth and ninth ribs. Fracisco Goodson MD Objective Remarks RLE: mild serosanguinous drainage of proximal pin sites and incision. exfix in place. neg karen. good dorsiflexion with no pain. NVI. Assessment & Plan Assessment and Plan 1) Right severely comminuted tibia plateau and proximal tibia shaft fractures with external fixation and return back to OR same day for fasciotomies POD 13 Irrigation debridement with closure of fasciotomies POD 6 ORIF with revision of Exfix - POD 1 pin care BID begin daily dressing changes today with xeroform/4x4/REBECCA lovenox for DVT prophylaxis ortho cleared for DC home with C spoke with patient regarding this plan and patient feels comfortable going home. plan for f/u with Bernardo or MARTHA in 2 weeks Oliver Krishna Apr 12, 2017 07:06
[2017-04-12 07:15] VITALS: BP 145/75; PULSE 101; RESP 18; TEMP 99.7; O2SAT 98
[2017-04-12] MEDS: MAGNESIUM HYDROXIDE SUSP 30 ML CUP PO SCH (09:00)
[2017-04-12] MEDS: DOCUSATE SODIUM 50 MG/SENNA 8.6 MG TAB PO SCH (09:00)
[2017-04-12] MEDS: LACTULOSE SYRUP 20 GM/30 ML CUP PO SCH (09:00)
[2017-04-12] MEDS: LIDOCAINE HCL 5% PATCH T-DERMAL SCH (10:04)
[2017-04-12] MEDS: QUEtiapine FUMARATE 100 MG TAB PO SCH (10:07)
[2017-04-12] MEDS: GABAPENTIN 300 MG CAP PO SCH ×2 (10:08→13:01)
[2017-04-12] MEDS: CALCIUM/VITAMIN D 250 MG/125 U TAB PO SCH ×2 (10:09→13:01)
[2017-04-12] MEDS: SODIUM CHLORIDE 0.9% FLUSH 10 ML FLUSH IV FLUSH SCH (10:11)
[2017-04-12] MEDS: BACITRACIN TOP OINT 15 GM TUBE TOPICAL SCH (10:16)
[2017-04-12] MEDS: CHOLECALCIFEROL (VIT D3) 1000 UNIT TAB PO SCH (10:46)
[2017-04-12 11:15] VITALS: BP 118/67; PULSE 86; RESP 16; TEMP 98.9; O2SAT 97
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
[2017-04-14] MEDS ORDERED: REMOVE OLD DURAGESIC (FENTANYL) PATCH T-DERMAL SCH (11:00)
== END 2017-04-12 13:52 | disposition home health service (06) | DRG 492 ==
LOC: NEPI 12:01 → EDBD 12:22 → NEDA 12:22 → MERGE 12:22 → N03B 12:56 → N07A 04-03 16:17
PROVIDERS: ADMIT Surgery; ATTEND Surgery
PROC: 5A1945Z Respiratory Ventilation, 24-96 Consecutive Hours (ICD-10-PCS; 2017-03-29)
PROC: 0BH17EZ Insertion of Endotracheal Airway into Trachea, Via Natural or Artificial Opening (ICD-10-PCS; 2017-03-29)
PROC: 0D9670Z Drainage of Stomach with Drainage Device, Via Natural or Artificial Opening (ICD-10-PCS; 2017-03-29)
PROC: 0KNS0ZZ Release Right Lower Leg Muscle, Open Approach (ICD-10-PCS; 2017-03-30)
PROC: 0QSG35Z Reposition Right Tibia with External Fixation Device, Percutaneous Approach (ICD-10-PCS; 2017-03-30)
PROC: 0KNS0ZZ Release Right Lower Leg Muscle, Open Approach (ICD-10-PCS; 2017-03-30)
PROC: 30233N1 Transfusion of Nonautologous Red Blood Cells into Peripheral Vein, Percutaneous Approach (ICD-10-PCS; 2017-04-01)
PROC: 0HQKXZZ Repair Right Lower Leg Skin, External Approach (ICD-10-PCS; 2017-04-03)
PROC: 3E10X8Z Irrigation of Skin and Mucous Membranes using Irrigating Substance (ICD-10-PCS; 2017-04-05)
PROC: 0QHG35Z Insertion of External Fixation Device into Right Tibia, Percutaneous Approach (ICD-10-PCS; 2017-04-10)
PROC: 0QUG07Z Supplement Right Tibia with Autologous Tissue Substitute, Open Approach (ICD-10-PCS; 2017-04-10)
PROC: 0QSG04Z Reposition Right Tibia with Internal Fixation Device, Open Approach (ICD-10-PCS; principal; 2017-04-10 11:46)
DX: S82.141A Displaced bicondylar fracture of right tibia, initial encounter for closed fracture (principal); J96.00 Acute respiratory failure, unspecified whether with hypoxia or hypercapnia; S22.42XA Multiple fractures of ribs, left side, initial encounter for closed fracture; S82.251A Displaced comminuted fracture of shaft of right tibia, initial encounter for closed fracture; S27.321A Contusion of lung, unilateral, initial encounter; G93.89 Other specified disorders of brain; T79.A0XA Compartment syndrome, unspecified, initial encounter; S06.0X1A Concussion with loss of consciousness of 30 minutes or less, initial encounter; S82.451A Displaced comminuted fracture of shaft of right fibula, initial encounter for closed fracture; S01.01XA Laceration without foreign body of scalp, initial encounter; V19.9XXA Pedal cyclist (driver) (passenger) injured in unspecified traffic accident, initial encounter; Y92.410 Unspecified street and highway as the place of occurrence of the external cause; Y93.55 Activity, bike riding; S50.312A Abrasion of left elbow, initial encounter; F17.210 Nicotine dependence, cigarettes, uncomplicated; Z91.5 Personal history of self-harm; Z59.0 Homelessness; F20.9 Schizophrenia, unspecified; F32.9 Major depressive disorder, single episode, unspecified; R91.1 Solitary pulmonary nodule
CPT/HCPCS: 27752; 31500; 36430; 36600; 70450; 71010; 71260; 72125; 72170; 73090; 73560; 73590; 73700; 74177; 76000; 80048; 80053; 82435; 82565; 82652; 82805; 82947; 83735; 84100; 84132; 84295; 84520; 85014; 85018; 85025; 85027; 85610; 85730; 86850; 86900; 86901; 86920; 87641; 90471; 94002; 94003; 94150; 96374; 96375; 99291; C1713; G0390; J0131; J0690; J1100; J1580; J1630; J1650; J1885; J2250; J2270; J2370; J2405; J3010; J3370; J7030; J7050; J7120; P9016; Q9967

== ENCOUNTER → 2017-06-05 | Day surgery (SDC) | payer OTHER ==
[~2017-06-05] VITALS: Ht 176.5 cm; Wt 63.5 kg
[~2017-06-05] MED LIST changes: +*MEPERIDINE 25 MG INJ VIAL PERIprocedural Use ONLY ONE; +*morphine SULFATE 10 MG/ML PERIprocedure ONLY ONE; +ACETAMINOPHEN/HYDROcodone 325 MG/7.5 MG TAB PO PRN; +CHLORHEXIDINE GLUCONATE 2 % 1 PACK (2 CLOTHS) TOPICAL PRN; +CHLORHEXIDINE GLUCONATE 4% SOLN 120 ML BTL TOPICAL SCH; +DEXAMETHASONE SOD PHOS 4 MG/ML VIAL IV ONE; +DO NOT ADM ANY ANTICOAGULANT DRUGS PRN; +ENDO10TA8 PO; +GLYCOPYRROLATE 1 MG/5 ML SYRINGE IV PUSH ONE; +HYDR-3288 PO; +IBUP-232 PO; +KETOROLAC TROMETHAMINE 30 MG/ML (IVP) VIAL IVP ONE; +LACTATED RINGER'S 1000 ML IV PRN; +LIDOCAINE HCL 1% PF 5 ML SYRINGE OTHER ONE; +MAGN30S PO; +METH500T3 PO; +METOPROLOL TARTRATE 25 MG TAB PO PRN; +MORPHINE SULFATE 2 MG/ML INJ IV PUSH PRN; +NEUR300C PO; +ONDANSETRON HCL 4 MG/2 ML VIAL IV ONE; +ONDANSETRON HCL 4 MG/2 ML VIAL IV PUSH PRN; +PERI PO; +POVIDONE IODINE 5% (ANTISEPSIS KIT) 4 APPLICATIONS EACH NARE PRN; +PROPOFOL 200 MG/20 ML AMP IV ONE; +SODIUM CHLORID 0.9% 500 ML IV PRN; +SODIUM CHLORIDE 0.9% FLUSH 10 ML FLUSH IV FLUSH PRN; +SODIUM CHLORIDE 0.9% FLUSH 10 ML FLUSH IV FLUSH SCH; +VANCOMYCIN 1000 MG/NS 250 ML (for <70 kg) IV SCH; +VITA1000 PO; +WALKER/ADULT/FO1 MIS; +WHEEMIS3; +XARE10TA PO; -Z.0.NO CURRENT MEDS; +ceFAZolin 2 GM PREMIX 50 ML IV SCH
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
[2017-06-05 10:45] VITALS: BP 142/73; PULSE 68; RESP 16; TEMP 98.5; O2SAT 99
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
== END | disposition home or self-care (01) ==
LOC: HSDC 05:40
PROVIDERS: ATTEND Orthopaedic Surgery Orthopaedic Trauma
DX: S82.141D Displaced bicondylar fracture of right tibia, subsequent encounter for closed fracture with routine healing (principal); S82.201D Unspecified fracture of shaft of right tibia, subsequent encounter for closed fracture with routine healing; V19.9XXD Pedal cyclist (driver) (passenger) injured in unspecified traffic accident, subsequent encounter
CPT/HCPCS: 01380; 20694; 27570; 73590; 76000; 97163; G8987; G8988; J1100; J1885; J2175; J2270; J2405; J3010; J7120; L1830